=== PATIENT | female | born 1950 | race Caucasian/White ===

== ENCOUNTER → 2016-05-13 12:46 | Outpatient (CLI) | payer MEDICARE | END | disposition home or self-care (01) | LOC: D.CT 12:46 | DX: M54.5 Low back pain (principal); M79.605 Pain in left leg; M79.604 Pain in right leg ==

== ENCOUNTER 2016-12-02 06:45 | Outpatient (CLI) | payer MEDICARE ==
[~2016-12-02] VITALS: Ht 162.6 cm; Wt 87.5 kg
[2016-12-02 07:41] LABS: BASOPHILS 0.3 % (0-2); EOSINOPHILS 1.7 % (0-7); HEMATOCRIT 34.8 % (36.0-48.0); HEMOGLOBIN 11.4 g/dL (12-16); IMMATURE GRANULOCYTES 0.2 % (0-5); LYMPHOCYTES 23.8 % (15-50); MCH 33.1 pg (26.0-34.0); MCHC 32.8 g/dL (31.0-37.0); MCV 101.2 fL (80.0-100.0); MEAN PLATELET VOLUME 10.3 fL (7.4-10.4); MONOCYTES 9.7 % (2-11); NEUTROPHILS 64.3 % (40-80); PLATELET COUNT 177 10x3/uL (130-400); RBC 3.44 10x6/uL (4.00-5.40); RDW 12.8 % (11.5-14.5); WBC 8.9 10x3/uL (4.8-10.8)
[2016-12-02 07:56] LABS: ANION GAP 11.7 mmol/L (8-16); CALCIUM 7.8 mg/dL (8.5-10.1); CARBON DIOXIDE 30.7 mmol/L (21.0-32.0); CREATININE - SERUM 4.4 mg/dL (0.6-1.3); POTASSIUM - SERUM 4.4 mmol/L (3.5-5.1)
[2016-12-02 07:57] LABS: APTT 33.8 SECONDS (22.8-39.4); INR 1.01 (0.85-1.17); PROTIME 13.1 SECONDS (11.6-15.0)
[2016-12-02] MEDS ORDERED: PLAVIX75 MG PO (10:01)
[2016-12-02] MEDS ORDERED: ISOSORBIDE MONO60 M1 PO (10:02)
[2016-12-02] MEDS ORDERED: COREG25 MG PO (10:02)
[2016-12-02] MEDS ORDERED: NORVASC5 MG PO (10:03)
[2016-12-02] MEDS ORDERED: AMITRIPTYLINE150 MG PO (10:05)
[2016-12-02] MEDS ORDERED: LASIX80 MG PO (10:05)
[2016-12-02] MEDS ORDERED: HumaLOG (10:07)
[2016-12-02] MEDS ORDERED: RENVELA800 MG PO (10:09)
[2016-12-02 10:19] VITALS: BP 165/67; Ht 162.6 cm; Wt 87.5 kg
--- NOTE | 2016-12-02 11:43 | NUR ---
1130-PATIENT STATES FEELS LIKE BLOOD SUGAR IS GETTING LOW. FSBS CHECKED, 107. SURGERY NOTIFIED TO UPDATE PATIENT ON WHEN SHE WILL GO TO SURGERY.
--- NOTE | 2016-12-02 12:34 | NUR ---
PATIENT CALLED TO GIVE UPDATE OF SURGICAL DELAY.
--- NOTE | 2016-12-02 13:13 | NUR ---
PATIENT UPDATED ON SURGERY DELAY. SPOKE WITH .
--- NOTE | 2016-12-02 16:21 | NUR ---
1420-patient informed will be 1700 before surgery. 1430-patient elects to go home as as to be at work at 1800. 1440-iv d/c 1450-d/c home.
== END 2016-12-02 14:50 | disposition home or self-care (01) ==
LOC: D.OPS 06:45 → EDSTATUS 08:30 → D.OPS 08:30
PROVIDERS: Surgery
DX: E11.22 Type 2 diabetes mellitus with diabetic chronic kidney disease (principal); I13.2 Hypertensive heart and chronic kidney disease with heart failure and with stage 5 chronic kidney disease, or end stage renal disease; I50.9 Heart failure, unspecified; N18.6 End stage renal disease; Z99.2 Dependence on renal dialysis; Z01.810 Encounter for preprocedural cardiovascular examination; Z01.811 Encounter for preprocedural respiratory examination; Z01.812 Encounter for preprocedural laboratory examination; Z53.9 Procedure and treatment not carried out, unspecified reason

== ENCOUNTER 2016-12-30 05:33 | Day surgery (SDC) | payer MEDICARE ==
[2016-12-29 16:30] LABS: BASOPHILS 0.4 % (0-2); EOSINOPHILS 1.5 % (0-7); HEMATOCRIT 38.6 % (36.0-48.0); HEMOGLOBIN 12.5 g/dL (12-16); IMMATURE GRANULOCYTES 0.2 % (0-5); LYMPHOCYTES 27.7 % (15-50); MCH 33.3 pg (26.0-34.0); MCHC 32.4 g/dL (31.0-37.0); MCV 102.9 fL (80.0-100.0); MEAN PLATELET VOLUME 9.9 fL (7.4-10.4); MONOCYTES 8.4 % (2-11); NEUTROPHILS 61.8 % (40-80); PLATELET COUNT 212 10x3/uL (130-400); RBC 3.75 10x6/uL (4.00-5.40); RDW 13.2 % (11.5-14.5); WBC 8.6 10x3/uL (4.8-10.8)
[2016-12-29 16:39] LABS: ANION GAP 15.5 mmol/L (8-16); CALCIUM 8.8 mg/dL (8.5-10.1); CREATININE - SERUM 3.9 mg/dL (0.6-1.3); POTASSIUM - SERUM 5.5 mmol/L (3.5-5.1)
[~2016-12-30 05:33] MED LIST: AMITRIPTYLINE150 MG PO; COREG25 MG PO; HumaLOG; ISOSORBIDE MONO60 M1 PO; LASIX80 MG PO; NORVASC5 MG PO; PLAVIX75 MG PO; RENVELA800 MG PO
[2016-12-30 06:58] VITALS: BP 129/55; BMI 32.8
[2016-12-30 07:01] LABS: APTT 30.8 SECONDS (22.8-39.4); INR 0.98 (0.85-1.17); PROTIME 12.8 SECONDS (11.6-15.0)
--- NOTE | 2017-01-03 15:51 | OP ---
PATIENT NAME: IRAM AREVALO MEDICAL RECORD: [id number] :48 LOCATION:AMBER ADMISSION DATE: SURGEON: ESAU JIMENEZ MD DATE OF OPERATION: 12/30/2016 REFERRED BY: Khurram Senior MD PREOPERATIVE DIAGNOSES: End-stage renal disease and dependence on hemodialysis, ischemic steal syndrome associated with the right arm brachiocephalic AV fistula. POSTOPERATIVE DIAGNOSES: End-stage renal disease and dependence on hemodialysis, ischemic steal syndrome associated with the right arm brachiocephalic AV fistula. OPERATION PERFORMED: Right brachiocephalic AV fistulogram and selective right brachial arteriogram and opened Musa banding of AV fistula. SURGEON: Esau Jimenez MD ANESTHESIA: General with LMA per DANCE THERAPIST. PREOPERATIVE NOTE: Ms. Arevalo is a 66-year-old white female on dialysis with the right arm brachiocephalic fistula. She has ischemic pain symptoms in her right hand. She has preserved, though somewhat dampened, Doppler flow in the radial artery. I do not detect a Doppler flow in the ulnar artery. The hand is pink and warm and there were no ulcerations or areas of gangrene or tissue loss. Under anesthesia, the patient was placed in supine position and the right arm prepped and draped in a sterile manner. I made an incision adjacent to the fistula just proximal to the anastomosis, which had been to the distal brachial artery and the cephalic vein or JA segment exposed. I accessed the fistula proximally with micropuncture technique directed distally and inserted a 6-Pashto introducer. I then inserted a guidewire, which I advanced across the arterial anastomosis and proximally up in the brachial artery. Contrast was injected into the fistula through the introducer sheath and there were no areas of stenosis or problems with runoff observed. With occlusion of the fistula and contrast injection into the cephalic vein, it was apparent that there was a wide open anastomosis and flow into the forearm was noted in the distal brachial artery and radial artery. I then advanced a glide catheter over the wire up into the proximal brachial artery and performed a selective brachial artery arteriogram to evaluate flow to the hand. This demonstrated very poor flow distal to the arterial anastomosis at the fistula with the fistula patent and very significant improvement with occlusion of the fistula. I then inserted a 5-mm diameter angioplasty balloon into the fistula and JA segment, it was inflated and 2-0 Prolene tie was placed around it and tied snugly with the balloon inflated to near its burst pressures. The result of this when the balloon was deflated was really no significant improvement. I subsequently removed that ligature and placed another one, but this time over a 4 mm diameter balloon in the JA segment and this was much more successful. The brachial artery arteriogram was repeated. This was a selective study and this did reveal improved flow into the brachial artery distal to the arterial anastomosis. The hardware was removed and hemostasis at the puncture site obtained with [id number] 4-0 Prolene sutures and some direct digital pressure. The wound was closed after infiltrating it with 0.25% Marcaine without epinephrine. I OPERATIVE REPORT [id number] IRAM AREVALO approximated the subcutaneous tissues with interrupted inverted 3-0 Vicryl and ran the skin with running intracuticular 4-0 Monocryl. The wound was closed and sealed further with Dermabond and dressed with Maxorb Ag, Tegaderm, and Cavilon skin prep. The puncture site was dressed similarly without the use of Dermabond. The patient awakened from her anesthetic was taken to the recovery room in stable condition with a patent fistula and pink hand. She will be allowed to go home today with a prescription for tramadol 50 mg, she can have 10 tablets 1 p.o. as often as 4 hours p.r.n. for pain. She is to continue all of her home medications and diet and her usual dialysis schedule and return to see me in my office next week. There was no blood loss during the procedure and all sponges, instruments, and needles were accounted for. No drain was used and no surgical specimen was submitted for histopathology. TRANSINT:[id number] Voice Confirmation ID: [id number] DOCUMENT ID: [id number] EASU JIMENEZ MD at 1551 CC: KHURRAM SENIOR MD [id number] DICTATION DATE: 12/30/16 1012 DISPATCHER REFINERY: 12/30/16 1049 [facility] 12/30/16 [facility] [address] [place] [address]
[2017-02-24] MEDS ORDERED: SENSIPAR30 MG PO (15:14)
== END 2016-12-30 12:00 | disposition home or self-care (01) ==
LOC: D.OPS 05:33
PROVIDERS: Anesthesiology; Surgery
DX: T82.590A Other mechanical complication of surgically created arteriovenous fistula, initial encounter (principal); N18.6 End stage renal disease; Z99.2 Dependence on renal dialysis; Z01.812 Encounter for preprocedural laboratory examination

== ENCOUNTER 2017-02-28 05:40 | Day surgery (SDC) | payer MEDICARE ==
[2017-02-24 15:51] LABS: BASOPHILS 0.3 % (0-2); EOSINOPHILS 1.3 % (0-7); HEMATOCRIT 34.7 % (36.0-48.0); HEMOGLOBIN 11.5 g/dL (12-16); IMMATURE GRANULOCYTES 0.2 % (0-5); LYMPHOCYTES 29.2 % (15-50); MCH 33.3 pg (26.0-34.0); MCHC 33.1 g/dL (31.0-37.0); MCV 100.6 fL (80.0-100.0); MEAN PLATELET VOLUME 10.3 fL (7.4-10.4); MONOCYTES 6.2 % (2-11); NEUTROPHILS 62.8 % (40-80); PLATELET COUNT 181 10x3/uL (130-400); RBC 3.45 10x6/uL (4.00-5.40); RDW 12.8 % (11.5-14.5); WBC 10.3 10x3/uL (4.8-10.8)
[2017-02-24 15:58] LABS: APTT 28.9 SECONDS (22.8-39.4); INR 1.06 (0.85-1.17); PROTIME 13.4 SECONDS (11.6-15.0)
[2017-02-24 16:19] LABS: ANION GAP 10.8 mmol/L (8-16); CALCIUM 8.6 mg/dL (8.5-10.1); CARBON DIOXIDE 32.9 mmol/L (21.0-32.0); POTASSIUM - SERUM 5.7 mmol/L (3.5-5.1)
[~2017-02-28] VITALS: Ht 162.6 cm; Wt 86.6 kg
[~2017-02-28 05:40] MED LIST changes: +SENSIPAR30 MG PO
[2017-02-28 07:10] VITALS: BP 121/90; Ht 162.6 cm; Wt 86.6 kg
[2017-02-28] MEDS ORDERED: HYDROCODON-ACE1 EAC7 PO (10:58)
--- NOTE | 2017-02-28 11:33 | NUR ---
112 DR. TONY SOL
--- NOTE | 2017-02-28 11:52 | OP ---
PATIENT NAME: IRAM BEDOYA MEDICAL RECORD: [id number] :46 LOCATION:[facility] ADMISSION DATE: SURGEON: ESAU JIMENEZ MD DATE OF OPERATION: 02/28/2017 PREOPERATIVE DIAGNOSIS: Steal syndrome resulting from high flow in left brachiocephalic arteriovenous fistula, previously banded without adequate resolution of symptoms. POSTOPERATIVE DIAGNOSIS: Steal syndrome resulting from high flow in left brachiocephalic arteriovenous fistula, previously banded without adequate resolution of symptoms. ADDITIONAL DIAGNOSIS: End-stage renal disease and dependence on hemodialysis. SURGEON: Esau Jimenez MD REFERRING PHYSICIAN: Khurram Senior MD ANESTHESIA: General with LMA per DIRECTOR OF ENTERTAINMENT. OPERATION PERFORMED: Revision of AV fistula, left arm, by interposition of a [place] Propaten 6-mm diameter PTFE graft between the proximal brachial artery and the fistula just above the antecubital space and ligation of the JA segment of the fistula just proximal to the original arterial anastomosis. PREOPERATIVE NOTE: I banded Ms. Avina fistula recently, but she had inadequate relief of her hand pain and she has returned to the operating room now for proximalization. DESCRIPTION OF PROCEDURE: Under general anesthesia in supine position, the patient was prepped and draped in sterile manner. I examined the arm with a duplex ultrasound and noted the position and size of the proximal brachial artery and made a longitudinal incision just distal to the axilla. The artery was exposed and controlled with Silastic loops. I then made an incision on the medial aspect of the fistula just above the antecubital space, and with sharp dissection exposed the JA segment and the Prolene tie or ligature, which I placed on it at the recent banding procedure. I then dissected free and adequate length of the vein for our purposes and encircled it with Silastic loops. I chose a 6-mm [place] Propaten standard wall thickness PTFE AV graft. I bevelled one end. I then occluded the brachial artery with Silastic loops, made a arteriotomy. Flushed the artery proximally and distally with heparinized saline and performed an end-to-side graft to artery anastomosis with running 6-0 Prolene. When completed, I allowed some backbleeding from the graft and then flushed it with heparinized saline and clamped. The suture line was hemostatic. I placed the graft in a subcutaneous tunnel between the axilla or upper arm wound and the distal arm incision. There it was shortened and beveled. The vein was ligated just above the old arterial anastomosis. This was done with a 2-0 Vicryl and the vein was occluded then with a vascular clamp. A venotomy was made and the vein then flushed with heparinized saline and then the graft shortened and beveled, was anastomosed end of graft to side of the vein with continuous running 6-0 Prolene. When the suture line was complete and the occluding loops and clamps were released, the suture line was hemostatic and excellent flow developed immediately in the fistula. OPERATIVE REPORT [id number] IRAM BEDOYA MANSI Both suture lines were hemostatic. The wounds were irrigated with Ancef and gentamicin solution. They were then infiltrated and irrigated with one-fourth percent Marcaine without epinephrine. The wounds were closed with interrupted inverted 3-0 Vicryl and then running intracuticular 4-0 Monocryl and Dermabond glue. The incisions were dressed with Maxorb Ag, Tegaderm and Cavilon skin prep. The patient was awakened. Doppler examination confirmed excellent continuous pulsatile flow in the fistula. There was a palpable brachial pulse at the antecubital level and there was excellent radial arterial Doppler flow signals at the wrist with good amplitude and phasicity. The patient was then taken to the recovery room in stable condition. Blood loss during the procedure was trivial and unreplaced. All sponges, instruments and needles were accounted for. No drain was used and no surgical specimen was submitted for histopathology. PLAN: The patient will be allowed to go home today. She lives here in [place]. I would like to see her back in my office next week. I can remove her dressing to check her wounds at that time. She is to continue her routine home medications and renal diet. She will continue her regular dialysis schedule and she may shower as the waterproof dressing are indeed waterproof. TRANSINT:[id number] Voice Confirmation ID: [id number] DOCUMENT ID: [id number] ESAU JIMENEZ MD at 1152 CC: KHURRAM SENIOR MD [id number] DICTATION DATE: 02/28/17 1114 ELECTRONIC SECURITY SPECIALIST: 02/28/17 1146 [facility] [address] [place] [address]
== END 2017-02-28 12:30 | disposition home or self-care (01) ==
LOC: D.OPS 05:40 → D.PAN 08:00 → D.OPS 08:00
PROVIDERS: Surgery
DX: T82.898A Other specified complication of vascular prosthetic devices, implants and grafts, initial encounter (principal); I13.2 Hypertensive heart and chronic kidney disease with heart failure and with stage 5 chronic kidney disease, or end stage renal disease; E11.22 Type 2 diabetes mellitus with diabetic chronic kidney disease; N18.6 End stage renal disease; I50.9 Heart failure, unspecified; Z99.2 Dependence on renal dialysis; J44.9 Chronic obstructive pulmonary disease, unspecified; G47.30 Sleep apnea, unspecified; Z95.1 Presence of aortocoronary bypass graft; Z95.5 Presence of coronary angioplasty implant and graft; E66.9 Obesity, unspecified; Z01.812 Encounter for preprocedural laboratory examination

== ENCOUNTER → 2018-02-12 07:46 | Outpatient (CLI) | payer MEDICARE ==
[2017-02-28 07:10] VITALS: BMI 32.8
[~2018-02-12 07:46] MED LIST changes: +HYDROCODON-ACE1 EAC7 PO
[2018-02-12 08:08] LABS: BASOPHILS 0.5 % (0-2); HEMATOCRIT 38.4 % (36.0-48.0); HEMOGLOBIN 12.8 g/dL (12-16); IMMATURE GRANULOCYTES 0.2 % (0-5); LYMPHOCYTES 26.6 % (15-50); MCH 34.2 pg (26.0-34.0); MCHC 33.3 g/dL (31.0-37.0); MCV 102.7 fL (80.0-100.0); MEAN PLATELET VOLUME 10.1 fL (7.4-10.4); MONOCYTES 8.6 % (2-11); NEUTROPHILS 62.1 % (40-80); PLATELET COUNT 165 10x3/uL (130-400); RBC 3.74 10x6/uL (4.00-5.40); RDW 13.2 % (11.5-14.5); WBC 9.2 10x3/uL (4.8-10.8)
[2018-02-12 08:19] LABS: APTT 33.6 SECONDS (22.8-39.4); CALCIUM 8.4 mg/dL (8.5-10.1); CARBON DIOXIDE 31.9 mmol/L (21.0-32.0); CREATININE - SERUM 5.2 mg/dL (0.6-1.3); INR 1.06 (0.85-1.17); POTASSIUM - SERUM 4.9 mmol/L (3.5-5.1); PROTIME 13.3 SECONDS (11.6-15.0)
== END | disposition home or self-care (01) ==
LOC: D.SP 07:46 → D.RAD 10:00
PROVIDERS: Specialist
DX: R20.0 Anesthesia of skin (principal); I70.203 Unspecified atherosclerosis of native arteries of extremities, bilateral legs; M48.061 Spinal stenosis, lumbar region without neurogenic claudication; Z01.812 Encounter for preprocedural laboratory examination

== ENCOUNTER 2018-04-23 18:26 | Observation (INO) | payer MEDICARE ==
[~2018-04-23] VITALS: Ht 162.6 cm; Wt 90.3 kg
--- NOTE | 2018-04-23 18:37 | NUR ---
PT ARRIVED TO UNIT VIA WC. ALERT AND ORIENTED. FAMILY AT BEDSIDE.
[2018-04-23 19:18] LABS: BASOPHILS 0.2 % (0-2); EOSINOPHILS 0.9 % (0-7); HEMATOCRIT 38.4 % (36.0-48.0); HEMOGLOBIN 12.6 g/dL (12-16); IMMATURE GRANULOCYTES 0.3 % (0-5); LYMPHOCYTES 16.9 % (15-50); MCH 33.7 pg (26.0-34.0); MCHC 32.8 g/dL (31.0-37.0); MCV 102.7 fL (80.0-100.0); MEAN PLATELET VOLUME 10.1 fL (7.4-10.4); MONOCYTES 9.4 % (2-11); NEUTROPHILS 72.3 % (40-80); RBC 3.74 10x6/uL (4.00-5.40); RDW 15.3 % (11.5-14.5); WBC 10.2 10x3/uL (4.8-10.8)
[2018-04-23 19:21] LABS: PLATELET COUNT 211 10x3/uL (130-400)
[2018-04-23] MEDS ORDERED: COREG25 MG PO (19:24)
[2018-04-23 19:28] LABS: INR 1.16 (0.85-1.17); PROTIME 14.2 SECONDS (11.6-15.0)
--- NOTE | 2018-04-23 19:30 | NUR ---
DIRECT ADMIT. REVIEWED PATIENT MED REC WITH PATIENT. CALLED DR. BOURGEOIS RESTARTED HS MEDS.
[2018-04-23 19:41] LABS: ANION GAP 15.6 mmol/L (8-16); CALCIUM 7.7 mg/dL (8.5-10.1); CARBON DIOXIDE 26.9 mmol/L (21.0-32.0); CREATININE - SERUM 7.4 mg/dL (0.6-1.3); PHOSPHOROUS 4.9 mg/dL (2.5-4.9); POTASSIUM - SERUM 5.5 mmol/L (3.5-5.1)
--- NOTE | 2018-04-23 20:53 | NUR ---
NICK MARC APN PAGED JOCELINE DAVALOS BACK
[2018-04-23 21:11] VITALS: BP 158/97
[2018-04-23 23:23] VITALS: BP 159/97; BMI 34.2
[2018-04-24 06:24] VITALS: BP 147/45
[2018-04-24 08:14] VITALS: BP 145/53
--- NOTE | 2018-04-24 09:10 | NUR ---
RESTS IN BED WITH EYES CLOSED. AT BS. CALL LIGHT IN REACH.
[2018-04-24 11:57] VITALS: BP 138/57
--- NOTE | 2018-04-24 12:50 | NUR ---
SPOKE WITH TY IN DIALYSIS AND STATED TO HER PT IS TO HAVE SURGERY TODAY AND DIALYSIS AFTER. SHE STATES SHE DIDN'T SEE THE ORDER BUT SHE'LL LOOK.
--- NOTE | 2018-04-24 13:42 | NUR ---
HIBACLENS BATH DONE AND PT IN GOWN.
[2018-04-24 14:18] VITALS: Ht 162.6 cm; Wt 90.3 kg
[2018-04-24 15:52] VITALS: BP 113/63
--- NOTE | 2018-04-24 16:26 | NUR ---
PT HIGHLY UPSET SURGERY WAS CANCELED. PT STATES "AM I JUST SUPOSSED TO LAY HERE AND ?! I HAVEN'T HAD DIALYSIS IN 5 DAYS!!!" I STATED TO PT SHE IS GOING LEONOR THING TOMORROW AM.
[2018-04-24 20:00] VITALS: BP 144/79
--- NOTE | 2018-04-24 20:05 | NUR ---
HS MEDS GIVEN WITH FRESH ICE WATER. BS 202, COVERED PER S/S. NORCO 1 TAB GIVEN FOR C/O GNERALIZED PAIN, RATES PAIN AT AN 8 ON PAIN SCALE.
--- NOTE | 2018-04-25 02:56 | NUR ---
RESTING WITH EYES CLOSED, RESPERATIONS EVEN, NO S.S DISTRESS NOTED.
[2018-04-25 04:00] VITALS: BP 171/75
--- NOTE | 2018-04-25 05:20 | NUR ---
CONSENTS RE-SIGNED FOR FISTULOGRAM WITH ANGIOJET TO BE DONE TODAY.
--- NOTE | 2018-04-25 07:10 | NUR ---
REPORT RECEIVED. PT HAS ALREADY GONE FOR SURGERY. AT BEDSIDE.
[2018-04-25 08:15] VITALS: BP 131/72
--- NOTE | 2018-04-25 09:31 | NUR ---
IN SURGERY AT THIS TIME. WILL CONT. PLAN OF CARE.
--- NOTE | 2018-04-25 10:29 | NUR ---
MYKE ULLOA RENAL CORRINE OF DR. JIMENEZ'S NURSE MESSAGE THAT STATED PT HAS A NEW RIGHT CHEST HEMOSPLIT AND HE COULD NO SALVAGE AVG AND THAT PT WILL NEED A NEW ACCESS AND TO HOLD PLAVIX THAT SHE WAS ON TO KEEP AVG OPEN. LAILA CASTLE VERBALIZED UNDERSTANDING. I ALSO STATED TO LAILA CASTLE THAT PT HAS NO RETURNED YET. SHE VERBALIZED UNDERSTANDING AGAIN.
--- NOTE | 2018-04-25 10:47 | NUR ---
JAIDA FROM RECOVERY STATES DR. JIMENEZ WAS UNABLE TO DECLOT FISTULA BUT HE DID PLACE RT CHEST HEMOSPLIT 148/65, HR 50, ANESTHESIA GAVE 0.4 ROBINUL AND PT HAS 200ML OF NS.
--- NOTE | 2018-04-25 10:51 | NUR ---
NEED ORDERS FOR HD TODAY. LAILA CASTLE PAGED.
--- NOTE | 2018-04-25 10:52 | NUR ---
LAILA CASTLE STATES SOFIYA KNOWS ABOUT PT NEEDING HD TODAY. CALLED AND SPOKE WITH GLADYS AND HE STATES PT WILL GO SOMETIME TODAY.
--- NOTE | 2018-04-25 10:55 | NUR ---
DUE TO HR 50 AND DROPPING AND BP 148/65 IN POST OP. LAILA CASTLE STATES TO HOLD COREG.
[2018-04-25 11:27] VITALS: BP 114/31
[2018-04-25 11:40] VITALS: BP 126/62
[2018-04-25 11:55] VITALS: BP 103/59
--- NOTE | 2018-04-25 12:04 | NUR ---
AT 1035 CONSULTED ANESTHESIA REGARDING MARKED BRADYCARDIA. DR ERNANDEZ AT BEDSIDE. ORDERS FOR GLYCOPYROLATE 0.4MG GIVEN. THIS WAS GIVEN BY STEFANIE ANDERSON CRNA. FOR A HEART RATE OF 44BPM. WILL CONTINUE TO MONITOR. BLOOD PRESSURE 172/80. PATIENT ASYMPTOMATIC.
[2018-04-25 12:10] VITALS: BP 101/81
--- NOTE | 2018-04-25 12:17 | NUR ---
JAIDA FROM OR CALLED AND STATED THAT DR. JIMENEZ IS DOING SURGERIES RIGHT NOW THAT IS NOT HERE BUT HE SHOUDL COME BACK TO SEE PT. RELAYED THIS MESSAGE TO PT.
--- NOTE | 2018-04-25 12:31 | NUR ---
SPOKE WITH DR. JIMENEZ'S OFFICE AND THEY STATED THAT DR. JIMENEZ STATES HE HOPES HE WILL BE BACK BY TODAY TO SEE PT AND ANSER HER QUESTIONS BUT HE IS DOING SURGERIES NOT HERE AT [facility].
--- NOTE | 2018-04-25 12:47 | NUR ---
SPOKE WITH LAILA RENAL OVERNIGHT CASHIER AND SHE STATES PT STATED TO HER SHE HAD A STENT RECENTLY SO TO CONTINUE PLAVIX.
--- NOTE | 2018-04-25 14:09 | NUR ---
PT STATED TO LAILA CARR SHE WANTS TO GO HOME CAUSE SHE HAS BEEN HERE SINCE MONDAY. PT HAS ONLY BEEN HERE SINCE MONDAY NIGHT. LAILA CASTLE STATES IF PT IS CONFUSED SHE DOES NEED TO STAY ANOTHER NIGHT AND THAT SHE IS GOING TO SPEAK WITH PT'S .
--- NOTE | 2018-04-25 14:10 | NUR ---
PT TAKEN DOWN TO DIALYSIS VIA BED.
--- NOTE | 2018-04-25 15:17 | NUR ---
SPOKE WITH MORENA FROM DR. JIMENEZ'S OFFICE AND STATED TO HER PT IS IN DIALYSIS AND WILL BE TILL 1800 OR A LITTLE AFTER BUT IS IN PT'S ROOM. SHE STATES SHE WILL TELL DR. JIMENEZ.
--- NOTE | 2018-04-25 17:28 | NUR ---
DIALYSIS STATES BP 171/90 HR 74 TEMP. 97.7 AND 2L OFF.
--- NOTE | 2018-04-25 18:05 | NUR ---
PT WANTING SOMETHING FOR PAIN BEFORE SHE IS DC AND STATES "I WON'T BE ABLE TO GET ANY REST TONIGHT WITHOUT IT." I ASKED IF SHE WOULD LIKE FOR ME TO CALL THE DOCTOR. SHE STATES "YES CALL THE DOCTOR!!!" PAGED LAILA CASTLE.
--- NOTE | 2018-04-25 18:10 | NUR ---
LAILA RENAL DISPENSING OPTICIAN APPRENTICE STATES TO JUST GIVE PT A NORCO NOW AND SHE CAN GET A SCRIPT TOMORROW IN DIALYSIS.
--- NOTE | 2018-04-25 18:18 | NUR ---
STATED TO PT WHAT LAILA CASTLE STATED TO ME. PT STATES SHE WILL TAKE A NORCO NOW AND WAIT AN HOUR. LEFT WRIST IV DC'D AND CATH INTACT.
--- NOTE | 2018-04-26 09:10 | MORECARE ---
CASE MANAGEMENT DISCHARGE SUMMARY PATIENT: IRAM BEDOYA SHARP UNIT: [id number] ADM DATE: 04/23/18 AGE: 67 : 48 SEX: F ROOM/BED: D.2133 AUTHOR: AUGUSTO SAGE PHYSICIAN: REFERRING PHYSICIAN: MAYURI BOURGEOIS MD DATE OF SERVICE: 04/26/18 Discharge Plan Patient Name: IRAM BEDOYA [facility] [facility] 1950 Planned Disposition: Home Anticipated Discharge Date: 04/25/18 Discharge Date: 04/25/2018 Expected LOS: 2 Initial Reviewer: [email or web address] Initial Review Date: 04/26/2018 Generated: 04/26/18 10:09 am Coverage Notice Reviewer: [email or web address] Nikkie Chauhan Notice Issued Date-Time: 04/24/2018 15:56 Notice Type: Medicare Outpatient Observation Notice Notice Delivered To: Patient Relationship to Patient: Self Publicist Name: Delivery Method: HAND - Hand Delivered Yaneth Days: Prior Verbal Notification: Recipient Understood Notice: Yes Recipient Signature: Med Rec Note Co-signed by Attending: Coverage Notice Comment: PATIENT REFUSED TO SIGN MCMAHAN. STATED SHE IS NOT GOING TO PAY FOR EXTRA DAY JUST BECAUSE THE DOCTOR CANCELLED. SHE STATED THE LAST TIME HE CANCELLED 3 TIMES. Patient Name: IRAM BEDOYA Page [phone] at 0910 All edits/amendments must be made on the electronic document DICTATION DATE: 04/26/18908 NANOFABRICATION SPECIALIST: VINICIUS 04/26/18908 RPT#: [id number] DC DATE:04/25/18 STATUS: DIS IN [facility] [address] [place] [address] END OF REPORT
[2018-05-03] MEDS ORDERED: OMEPRAZOLE40 MG PO (11:31)
== END 2018-04-25 19:30 | disposition home or self-care (01) ==
LOC: D.M2 18:26 → OBSVTIME 18:26 → D.M2 04-25 19:30
PROVIDERS: Internal Medicine Nephrology; Surgery; ADMIT Internal Medicine Nephrology
DX: T82.868A Thrombosis due to vascular prosthetic devices, implants and grafts, initial encounter (principal); Y83.8 Other surgical procedures as the cause of abnormal reaction of the patient, or of later complication, without mention of misadventure at the time of the procedure; S45.811A Laceration of other specified blood vessels at shoulder and upper arm level, right arm, initial encounter; Y84.9 Medical procedure, unspecified as the cause of abnormal reaction of the patient, or of later complication, without mention of misadventure at the time of the procedure; N18.6 End stage renal disease; Z99.2 Dependence on renal dialysis

== ENCOUNTER 2018-05-04 11:13 | Day surgery (SDC) | payer MEDICARE ==
[2018-05-03 11:59] LABS: BASOPHILS 0.3 % (0-2); EOSINOPHILS 1.7 % (0-7); HEMATOCRIT 34.5 % (36.0-48.0); HEMOGLOBIN 11.3 g/dL (12-16); IMMATURE GRANULOCYTES 0.3 % (0-5); LYMPHOCYTES 23.9 % (15-50); MCH 33.5 pg (26.0-34.0); MCHC 32.8 g/dL (31.0-37.0); MCV 102.4 fL (80.0-100.0); MONOCYTES 6.9 % (2-11); NEUTROPHILS 66.9 % (40-80); PLATELET COUNT 242 10x3/uL (130-400); RBC 3.37 10x6/uL (4.00-5.40); RDW 14.4 % (11.5-14.5); WBC 8.9 10x3/uL (4.8-10.8)
[2018-05-03 12:04] LABS: INR 1.08 (0.85-1.17); PROTIME 13.5 SECONDS (11.6-15.0)
[2018-05-03 12:05] LABS: ANION GAP 13.7 mmol/L (8-16); CALCIUM 7.7 mg/dL (8.5-10.1); CARBON DIOXIDE 28.2 mmol/L (21.0-32.0); POTASSIUM - SERUM 3.9 mmol/L (3.5-5.1)
[~2018-05-04] VITALS: Ht 162.6 cm; Wt 86.6 kg
[~2018-05-04 11:13] MED LIST changes: +OMEPRAZOLE40 MG PO
[2018-05-04 12:06] VITALS: Ht 162.6 cm; Wt 86.6 kg
[2018-05-04] MEDS ORDERED: ULTRAM50 MG PO ×2 (16:12→16:15)
--- NOTE | 2018-05-04 18:25 | NUR ---
DISCHARGE INSTRUCTIONS REVIEWED WITH PATIENT AND SPOUSE. RIGHT HEMOSPLIT FLUSHED WITH 1.9 ML HEPARIN AND CAPPED HEMOSPLIT WAS USED BY SURGERY FOR VENOUS ACCESS. PATIENT DRESSING IN PERSONAL CLOTHING, PATIENT INSTRUCTED TO KEEP SLING ON AND PUT SHIRT AROUND ARM INSTEAD OF PUTTING ARM IN SLEEVE OF SHIRT, STATES UNDERSTANDING
--- NOTE | 2018-05-08 14:58 | OP ---
PATIENT NAME: IRAM AREVALO MEDICAL RECORD: [id number] :46 LOCATION:AMBER ADMISSION DATE: SURGEON: ESAU JIMENEZ MD DATE OF OPERATION: 05/04/2018 REFERRED BY: Khurram Senior MD PREOPERATIVE DIAGNOSES: End-stage renal disease, dependence on hemodialysis, and thrombosed right upper extremity arteriovenous graft, and history of steal syndrome in the right upper extremity. OPERATION PERFORMED TODAY: Creation of a left brachiocephalic AV fistula. SURGEON: Esau Jimenez MD ANESTHESIA: Regional nerve block plus monitored anesthesia, IV sedation per SHOP WORKER. PREOPERATIVE NOTE: Ms. Arevalo is a 67-year-old white female patient with end-stage renal disease, on chronic hemodialysis. She dialyzed for some time with a right brachiocephalic AV fistula. She developed a steal syndrome and had a proximal arterialization with a PTFE graft, which solved that problem, but she then had episodes of thrombosis and with the last episode of thrombosis due to cephalic arch stenosis the access could not be salvaged. She is now dialyzing at [facility] with a right internal jugular tunneled dialysis catheter and is brought to the hospital and to the operating room for a new access in the left arm today. She had vein mapping recently by Dr. Senior and was found to have a very nice cephalic vein in the arm above the antecubital space and to be a good candidate for brachiocephalic fistula. Note, the patient had had a brachiocephalic fistula previously on the right and with that had developed a steal syndrome. DESCRIPTION OF PROCEDURE: Under anesthesia in supine position, the patient was prepped and draped in sterile manner. A [place] drain was used as a proximal venous tourniquet and nitroglycerin ointment was applied to the intact skin of the arm and forearm. I then examined the patient with Duplex ultrasound and noted the veins in the forearm to be quite small and really unusable. There was a very nice median cubital vein and upper arm cephalic vein and a good brachial artery. I did not have enough vein to reach the proximal radial artery for anastomosis, I did not think. I made a transverse antecubital incision and exposed the median cubital vein and the brachial artery. Indeed, there was really not enough length of vein to reach the proximal radial artery, but I was able to do an anastomosis to the distal brachial. The vein was freed from surrounding structures. It was ligated and divided and bevelled distally and flushed with heparinized saline. The artery was controlled with doubly looped Silastic tapes. It was opened for a distance of about 7 mm and flushed with heparinized saline proximally and distally. An end-to-side anastomosis was then carried out with running 7-0 Prolene and on completion of the anastomosis, a good thrill and pulse developed in the fistula. Continuous wave handheld Doppler examination demonstrated pulsatile continuous flow in the proximal brachial artery and of course in the fistula. There was more resistance in the distal brachial artery flow signal. Doppler flow was present in the radial and ulnar arteries at the wrist with and without compression of the new fistula. I could not detect the palmar arch with OPERATIVE REPORT [id number] AURELIANOIRAM SHARP the Doppler, either with or without new fistula occlusion. The hand; however, remained pink with normal capillary refill. The patient's wound was closed with interrupted inverted 3-0 Vicryl and then running intracuticular 4-0 Monocryl and Dermabond glue. It was dressed with Maxorb Ag, Tegaderm, and Cavilon skin prep. She was awakened from the sedation and taken to the recovery room in stable condition. Blood loss during the operation was trivial and unreplaced. Sponges, instruments, and needles were accounted for. No drain was used and no surgical specimen was submitted for histopathology. PLAN: The patient will be discharged to home from outpatient today. She will continue all of her same medications, her home diet, and activities and dialysis schedule. She may resume her Plavix as of tomorrow. She is to leave the original operative dressing intact if possible until she comes to see me for her followup office visit in about 10 days or 1 week from this coming Monday. I have left her a prescription for a few tramadol 50 mg tablets, she can take 1 or if needed 2 q.4 hours p.r.n. for pain. TRANSINT:[id number] Voice Confirmation ID: [id number] DOCUMENT ID: [id number] cc: [facility] [phone] ESAU JIMENEZ MD at 2548 CC: KHURRAM SENIOR and [facility] [id number] DICTATION DATE: 05/04/18 163 PSYCHIATRIC REGISTERED NURSE: 05/04/18 9209 [facility] 05/04/18 [facility] [address] [place] [address]
== END 2018-05-04 18:40 | disposition home or self-care (01) ==
LOC: D.OPS 11:13
PROVIDERS: Surgery
DX: T82.868A Thrombosis due to vascular prosthetic devices, implants and grafts, initial encounter (principal); N18.6 End stage renal disease; Z99.2 Dependence on renal dialysis; Z01.812 Encounter for preprocedural laboratory examination

== ENCOUNTER 2018-07-10 08:22 | Day surgery (SDC) | payer MEDICARE ==
[~2018-07-10] VITALS: Ht 157.5 cm; Wt 86.6 kg
--- NOTE | ~2018-07-10 | OP ---
PATIENT NAME: IRAM AREVALO MEDICAL RECORD: [id number] :48 LOCATION:AMBER ADMISSION DATE: SURGEON: ESAU JIMENEZ MD DATE OF OPERATION: 07/10/2018 REFERRING PHYSICIAN: Khurram Senior MD PREOPERATIVE DIAGNOSES: End-stage renal disease and dependence on hemodialysis with steal syndrome in left upper extremity secondary to brachiocephalic AV fistula. POSTOPERATIVE DIAGNOSES: End-stage renal disease and dependence on hemodialysis with steal syndrome in left upper extremity secondary to brachiocephalic AV fistula. OPERATION PERFORMED: Fistulogram, selective left brachial artery arteriogram, open Musa banding of AV fistula, and ultrasound-guided access. PREOPERATIVE NOTE: Ms. Arevalo is a 67-year-old white female patient with end-stage renal disease and a dysfunctional left brachiocephalic AV fistula. She has steal syndrome. She is brought to the OR to confirm the diagnosis by angiography and perform an open Musa banding. DESCRIPTION OF PROCEDURE: Under general anesthesia in supine position, the patient was prepped and draped in sterile manner. The fistula was accessed in retrograde direction with micropuncture technique and ultrasound guidance. A 6-Ecuadorean introducer was placed. Contrast was injected repeatedly and complete fistulogram from arterial anastomosis to right atrium completed without any significant stenoses or obstructions identified. A Glidewire and a Ellerbe catheter were then advanced across the arterial anastomosis and proximally up into the axillary artery and a selective arteriogram performed of the left upper extremity. This revealed no evidence of obstruction of the axillary or brachial artery through its bifurcation, although there was very slow and very poor flow into the forearm. This was improved with occlusion of the fistula in essence of positive steal study. I made an incision then along the fistula just above the arterial anastomosis and exposed it and isolated it. I inserted a 4-mm diameter angioplasty balloon into the JA segment and inflated the balloon and then tied a 2-0 Prolene ligature around it to produce a precise 4-mm diameter lumen. The balloon was deflated. Contrast injection again performed, which demonstrated an improvement in distal flow to the hand. The hardware was removed. Hemostasis was obtained with a bcassi-eu-qvrye 4-0 Prolene suture and a sterile dressing was applied. The patient was awakened and taken to the recovery room. TRANSINT:[id number] Voice Confirmation ID: [id number] DOCUMENT ID: [id number] ESAU JIMENEZ MD CC: KHURRAM SENIOR [id number] DICTATION DATE: 07/16/18 1634 REMOTE SENSING SURVEYOR: 07/16/181911 [facility] 07/10/18 [place] [id number] [place] [id number]
[~2018-07-10 08:22] MED LIST changes: +ULTRAM50 MG PO
[2018-07-10 09:06] LABS: ANION GAP 14.4 mmol/L (8-16); CREATININE - SERUM 5.2 mg/dL (0.6-1.3); POTASSIUM - SERUM 4.4 mmol/L (3.5-5.1)
[2018-07-10 09:13] LABS: INR 1.12 (0.85-1.17); PROTIME 13.9 SECONDS (11.6-15.0)
[2018-07-10 09:20] LABS: BASOPHILS 0.4 % (0-2); EOSINOPHILS 1.6 % (0-7); HEMOGLOBIN 12.3 g/dL (12-16); IMMATURE GRANULOCYTES 0.4 % (0-5); LYMPHOCYTES 24.2 % (15-50); MCH 33.9 pg (26.0-34.0); MCHC 33.2 g/dL (31.0-37.0); MCV 101.9 fL (80.0-100.0); MEAN PLATELET VOLUME 10.9 fL (7.4-10.4); MONOCYTES 7.7 % (2-11); NEUTROPHILS 65.7 % (40-80); RBC 3.63 10x6/uL (4.00-5.40); RDW 12.7 % (11.5-14.5); WBC 10.9 10x3/uL (4.8-10.8)
[2018-07-10 09:39] LABS: PLATELET COUNT 169 10x3/uL (130-400)
[2018-07-10] MEDS ORDERED: TOUJEO SOL300 UNIT/1 SC (10:44)
[2018-07-10] MEDS ORDERED: BAYER CHEWABLE81 MG PO (10:45)
[2018-07-10 10:56] VITALS: Ht 157.5 cm; Wt 86.6 kg
--- NOTE | 2018-07-10 11:07 | NUR ---
LABS REVIEWED. NO SIGNIFICANT LEVELS NOTED.
--- NOTE | 2018-07-10 13:31 | NUR ---
FSBS 135MG/DL
--- NOTE | 2018-07-10 14:31 | NUR ---
1420 BS DONE PER REQUEST 113. ATE FULL LIQ TRAY
== END 2018-07-10 15:00 | disposition home or self-care (01) ==
LOC: D.OPS 08:22
PROVIDERS: Surgery; ATTEND Internal Medicine Nephrology
DX: T82.590A Other mechanical complication of surgically created arteriovenous fistula, initial encounter (principal); T82.898A Other specified complication of vascular prosthetic devices, implants and grafts, initial encounter; N18.6 End stage renal disease; Z01.812 Encounter for preprocedural laboratory examination

== ENCOUNTER 2018-08-28 10:30 | Outpatient (CLI) | payer MEDICARE ==
[2018-07-10 10:56] VITALS: BMI 35.0
[~2018-08-28 10:30] MED LIST changes: +BAYER CHEWABLE81 MG PO; +TOUJEO SOL300 UNIT/1 SC
== END 2018-08-28 11:00 | disposition home or self-care (01) ==
LOC: D.MAMMO 10:30
PROVIDERS: ATTEND Internal Medicine Nephrology
DX: Z12.31 Encounter for screening mammogram for malignant neoplasm of breast (principal)

== ENCOUNTER 2018-09-28 05:49 | Day surgery (SDC) | payer MEDICARE ==
[2018-09-27 15:08] LABS: BASOPHILS 0.2 % (0-2); EOSINOPHILS 0.9 % (0-7); HEMATOCRIT 36.3 % (36.0-48.0); HEMOGLOBIN 12.5 g/dL (12-16); IMMATURE GRANULOCYTES 0.2 % (0-5); LYMPHOCYTES 26.7 % (15-50); MCH 34.3 pg (26.0-34.0); MCHC 34.4 g/dL (31.0-37.0); MCV 99.7 fL (80.0-100.0); MEAN PLATELET VOLUME 9.8 fL (7.4-10.4); MONOCYTES 10.7 % (2-11); NEUTROPHILS 61.3 % (40-80); PLATELET COUNT 191 10x3/uL (130-400); RBC 3.64 10x6/uL (4.00-5.40); WBC 10.4 10x3/uL (4.8-10.8)
[2018-09-27 15:26] LABS: ANION GAP 14.5 mmol/L (8-16); CALCIUM 8.5 mg/dL (8.5-10.1); CARBON DIOXIDE 30.3 mmol/L (21.0-32.0); CREATININE - SERUM 4.6 mg/dL (0.6-1.3); POTASSIUM - SERUM 4.8 mmol/L (3.5-5.1)
[~2018-09-28] VITALS: Ht 162.6 cm; Wt 86.6 kg
--- NOTE | ~2018-09-28 | OP ---
PATIENT NAME: IRAM AREVALO MEDICAL RECORD: [id number] :48 LOCATION:AMBER ADMISSION DATE: SURGEON: ESAU JIMENEZ MD DATE OF OPERATION: 09/28/2018 REFERRING PHYSICIAN: Khurram Hermosillo MD PREOPERATIVE DIAGNOSES: End-stage renal disease on hemodialysis and dependence on renal dialysis. POSTOPERATIVE DIAGNOSES: End-stage renal disease on hemodialysis and dependence on renal dialysis. OPERATION PERFORMED: Laparoscopy with enterolysis and omentopexy and implantation of a Merit coiled dialysis catheter laparoscopically on the left side with subcutaneous presternal extension. SURGEON: Esau Jimenez MD ANESTHESIA: General endotracheal per NEURO PSYCH SALES SPECIALIST. PREOPERATIVE NOTE: Ms. Arevalo is a 68-year-old white female patient with end-stage renal disease, presently on hemodialysis with a left brachiocephalic AV fistula. Though it is new, it has only been used a few times. She is to have a PD catheter implanted. We plan to implant a catheter with presternal extension. We have discussed preoperatively various exit sites and had chosen a chest exit. This will be on the left because the patient has a chronic indwelling HemoSplit presently on the right side. DESCRIPTION OF PROCEDURE: The patient was administered anesthesia and then in a supine position she was prepped and draped in a sterile manner. Laparoscopic access was gained through a small incision just beneath the costal margin on the left. A 5-mm XL Optiview type port was used with a 5-mm diameter scope within it. Pneumoperitoneum was established with carbon dioxide and three additional 5-mm ports were used during the procedure. I found the patient to have extensive adhesions of omentum to the anterior abdominal wall and particularly to the anterior pelvic wall. Enterolysis was performed bluntly and with use of the Harmonic scalpel. There was some bleeding, which I treated with a 20 mcg of DDAVP administered by anesthesia intravenously and I felt that it would be okay then to do an omentopexy and then implant the catheter. The omentopexy was done with a Marcello-Genna suture passer through 2 separate small incisions, one in the left upper quadrant and one in the right upper quadrant. These held the omentum up against the anterior abdominal wall in the upper portion of the abdomen quite nicely. This should prevent omental wrap occurring in the pelvis. I measured from the symphysis pubis and determined a site for the Dacron felt cuff to be implanted within the rectus muscle. I made a vertical incision there so as to be able to have a good angle when creating the transrectus and preperitoneal tunnel. I injected 0.25% Marcaine with epinephrine into the rectus muscle and then inserted the access needle and watched it with the laparoscope remaining anterior to the peritoneum as far as I could and directed into the pelvis. A 16-Algerian introducer was then passed over a guidewire and then through that the Merit coiled catheter was inserted. The blue stripe was kept anteriorly. The cuff was implanted within the rectus deep to the anterior rectus sheath and a pursestring suture of 0 Vicryl was placed. I had chosen preoperatively the exit site on the left chest between the breast and the OPERATIVE REPORT [id number] AURELIANOIRAM SHARP lateral border of the sternum and identified the site for the incision at that level and where the cuff should come to rest and where the exit site would be. I then made a vertical incision about midway between and to the left of the midline and measured appropriately and trimmed the 2 catheters to the proper lengths. The extension was then connected to the intra-abdominal tube with a titanium connector secured further with 2-0 Prolene ties. The catheter was pulled through a tunnel, which left the titanium connector beneath the secondary incision and the black stripe perfectly aligned in the incision over the chest. I used a 19-Algerian Bard drain trocar to put the catheter in a subcutaneous tunnel and obtain a skin exit site, which was not too large around the catheter. The Dacron felt cuff was about 3 cm superior to the skin exit site. The catheter was accessed and flushed. It was then connected to 1000 cc bag of saline, which was allowed to run into the abdomen and did so very quickly. We then placed the bag on the floor and it returned the liter of saline also very quickly. The catheter then had a titanium connector applied and a standard transfer set and was flushed with heparinized saline. The incisions were irrigated with Ancef/gentamicin solution and infiltrated and irrigated with 0.25% Marcaine. The wounds were closed with interrupted 3-0 Vicryl and running intracuticular 4-0 Monocryl and Dermabond glue. Repeat laparoscopic examination revealed the catheter to be in good position without any significant bleeding and there was no evidence of any untoward injuries to any of the surrounding viscera. The laparoscopic ports were removed. They were also closed with Vicryl and Dermabond. All of the incisions were then dressed with Maxorb Ag, Tegaderm, and Cavilon skin prep. A chlorhexidine Biopatch was used on the PD catheter at the exit site, which was then covered with a 4 x 4 Medipore dressing with a small portion of the PD catheter external to that and the transfer set and these were coiled and secured with a small piece of tape to the anterior chest wall. The patient was then awakened and extubated and taken to the recovery room in stable condition having tolerated the procedure quite well. PLAN: If she is comfortable and stable, she will be able to go home today and come back to see me in my office next week or come to see me at [facility] on Monday and I can remove her dialysis catheter then if she has not had any problems with hemodialysis access between now and then. She is given a prescription for 20 tablets of [place] 5/325, she can take 1 or 2 p.o. every 4 hours p.r.n. pain. I will arrange her to have a catheter flush by the [place] dialysis PD nurses next week. I will plan to remove the dressings from the operative sites when I see her next week and the PD nurses will be in charge of dressing and the care of the dialysis catheter's exit site. Blood loss was about 50 cc, perhaps this was unreplaced. Sponges, instruments, and needles were accounted for. No drain was used and I did not submit any surgical specimen for histopathology. TRANSINT:[id number] Voice Confirmation ID: [id number] DOCUMENT ID: [id number] OPERATIVE REPORT [id number] IRAM AREVALO JAMES MD CC: [id number] DICTATION DATE: 09/28/18 1317 PRODUCE SERVICE TEAM MEMBER: 09/28/18 1404 [facility] [address] [place] [address]
[2018-09-28 08:15] VITALS: Ht 162.6 cm; Wt 86.6 kg
[2018-09-28] MEDS ORDERED: HYDROCODON-ACE1 EAC7 PO (12:55)
--- NOTE | 2018-09-28 14:53 | NUR ---
1430- DISCONTINUED IV FROM RIGHT HAND WITH CATH INTACT, DISPOSED INTO SHARPS. APPLIED COTTON BALL AND BANDADE TO SITE. TOLERATED WELL WITHOUT COMPLAINTS.
--- NOTE | 2018-09-28 14:55 | NUR ---
1445- DISCHARGED HOME VIA WHEELCHAIR WITH DISCHARGE INSTRUCTIONS IN HAND. VERBALIZES UNDERSTANDING.
== END 2018-09-28 14:45 | disposition home or self-care (01) ==
LOC: D.OPS 05:49 → D.PAN 08:00 → D.OPS 08:00
PROVIDERS: Surgery; ATTEND Internal Medicine Nephrology
DX: N18.6 End stage renal disease (principal); Z99.2 Dependence on renal dialysis; Z01.812 Encounter for preprocedural laboratory examination

== ENCOUNTER 2019-05-21 06:23 | Outpatient (CLI) | payer MEDICARE ==
[~2019-05-21] VITALS: Ht 162.6 cm; Wt 85.9 kg
--- NOTE | ~2019-05-21 | HEMODYNAMI ---
PATIENT:IRAM BEDOYA MEDICAL RECORD: [id number] : 46 LOCATION:DLEANDRO ADMISSION DATE: 05/21/19 Generatedon:05/21/201910:23 Patient name: IRAM BEDOYA Patient #: [id number] SSN: : 1950 Date of study: 05/21/2019 Page: Of Hemodynamic Procedure Report Patient Data Patient Demographics Procedure consent was obtained First Name: IRAM Gender: Female Last Name: AURELIANO : 1950 [facility] Initial: MANSI Age: 68 year(s) Patient #: [id number] Race: Unknown Additional ID: [id number] Contact details [address]: [address] [place] [address] State: [place] City: [place] Zip code: [address] Past Medical History Allergies: No known allergies Admission Admission Data Admission Date: 05/21/2019 Admission Time: 6:23 Procedure Procedure Types Cath Procedure Peripheral Cath Diagnostic Procedure Abd/Extremity Extremities Left Lower Ext Arterio Procedure Description Procedure Date Procedure Date: 05/21/2019 Procedure Start Time: 9:48 Procedure End Time: 10:22 Procedure Staff Name Function Khurram Peck MD Performing Physician GABE PETER RT Monitor Clark Brink RT Scrub Laura Morfin RN Nurse Imani Moses RN Nurse Procedure Data Cath Procedure Fluoroscopy Diagnostic fluoroscopy Total fluoroscopy Time: 7.5 time: 7.5 min min Contrast Material Contrast Material Type Amount (ml) Isovue 300 125 Entry Location Entry Primary Successful Side Size Upsize Upsize Entry Closure Succ essful Closure Location (Fr) 1 (Fr) 2 (Fr) Remarks Device Remarks Femoral Right 5 Fr 6 Fr Angio-VIP artery Long 6Fr Diagnostic catheters Device Type Used For End Catheter Placement Merit ULTRA BOLUS FLUSH 5Fr 65CM catheter ([id number]) Procedure Medications Medication Administration Route Dosage Heparin Flush Bag added to field 3 bags (1000units/500ml NS) Lidocaine 1% added to field 20 Benadryl I.V. 25 mg Fentanyl I.V. 50 mcg Versed I.V. 1 mg Benadryl I.V. 25 mg Heparin Bolus I.A. 1000 units Fentanyl I.V. 50 mcg Versed I.V. 1 mg Heparin Bolus I.A. 1000 units Hemodynamics Rest Heart Rate: 69 (bpm) Snapshots Pre Cath Intra NCS Post Cath Vital Signs Time Heart Resp SPO2 etCO2 NIBP (mmHg) Rhythm Pain Sedation Rate (ipm) (%) (mmHg) Status Level (bpm) 9:18:00 69 19 100 0 169/66(125) NSR 0 (11) 10(A) , No pain 9:22:40 69 12 100 40.9 160/65(120) NSR 0 (11) 10(A) , No pain 9:27:13 67 17 100 37.9 160/65(120) NSR 0 (11) 10(A) , No pain 9:31:43 64 19 100 34.8 157/65(120) NSR 0 (11) 10(A) , No pain 9:36:11 65 19 100 37.1 161/64(123) NSR 0 (11) 10(A) , No pain 9:40:40 64 21 100 39.4 159/64(110) NSR 0 (11) 8(A) , No pain 9:45:00 60 16 100 17.4 133/55(99) NSR 0 (11) 8(A) , No pain 9:49:59 59 13 35.6 Measuring NSR 0 (11) 8(A) , No pain 9:50:11 59 12 100 35.6 120/55(89) NSR 0 (11) 8(A) , No pain 9:55:10 60 16 99 38.6 Measuring NSR 0 (11) 8(A) , No pain 9:55:16 60 15 100 41.6 132/64(100) NSR 0 (11) 8(A) , No pain 10:00:15 61 17 97 40.1 Measuring NSR 0 (11) 8(A) , No pain 10:00:28 61 18 100 39.4 139/54(106) NSR 0 (11) 8(A) , No pain 10:05:27 58 11 100 38.6 Measuring NSR 0 (11) 8(A) , No pain 10:05:41 58 11 100 40.1 126/52(85) NSR 0 (11) 8(A) , No pain 10:10:01 57 12 100 40.9 124/58(77) NSR 0 (11) 8(A) , No pain 10:14:19 58 14 100 39.4 113/55(86) NSR 0 (11) 8(A) , No pain 10:18:35 59 13 100 41.6 127/57(91) NSR 0 (11) 8(A) , No pain 10:22:35 0 No Cuff NSR 0 (11) 8(A) , No pain Medications Time Medication Route Dose Verified Delivered Reason Notes Effectiveness by by 9:21:30 Heparin Flush added 3 Khurram Paulson used for Bag to bags Peck Peck procedure (1000units/500ml field MD MOON NS) 9:21:53 Lidocaine 1% added 20ml Khurram Paluson for local to vial Peck Peck anesthetic field MD MOON 9:27:33 Benadryl I.V. 25 mg Khurram Sanchez used for Peck Navjot back feeder plywood layup line 9:38:44 Fentanyl I.V. 50 Khurram Diallo for sedation mcg Cisco Moses RN, MD 9:38:58 Versed I.V. 1 mg Khurram Diallo for sedation Cisco Moses RN, MD 9:39:56 Benadryl I.V. 25 mg Khurram Diallo used for Peck Josué back feeder plywood layup line 9:53:40 Heparin Bolus I.A. 1000 Khurram Paulson for units Peck Peck anticoagulation MD MOON 9:54:55 Fentanyl I.V. 50 Khurram Diallo for sedation mcg Cisco Moses RN, MD 9:55:06 Versed I.V. 1 mg Khurram Diallo for sedation Peckjigar Moses RN, MD 10:00:24 Heparin Bolus I.A. 1000 Khurram Paulson for units Peck Peck anticoagulation MD MOON Procedure Log Time Note 9:04:51 Use device set IR Diagnostic 9:04:53 ACIST Syringe (90707) opened to sterile field. 9:04:53 ACIST Hand Control (82496) opened to sterile field. 9:04:54 ACIST Manifold (23615) opened to sterile field. 9:04:54 Bag Decanter () opened to sterile field. 9:04:55 Sterile Angiographic Pack opened to sterile field. 9:04:55 Tegaderm 4 x 4 (1626W) opened to sterile field. 9:05:27 TUBING High Pressure Extension Tubing (Kimble) ([id number]) opened to sterile field. 9:05:27 DOC .035 wire (U95069) opened to sterile field. 9:05:51 NEEDLE Cook 18G 7cm Percutaneous Entry needle (F95692) opened to steril e field. 9:05:58 SHEATH 5FR [place] (ABX208) opened to sterile field. 9:07:00 ALFARO 260 wire (B36668) opened to sterile field. 9:10:41 A [employer] ULTRA BOLUS FLUSH 5Fr 65CM catheter ([id number]) was advanced over the wire and used for . 9:10:50 - 9:10:54 Laura Morfin RN sent for patient. Start room use. 9:10:55 Time tracking: Regular hours (M-F 7:00 - 5:00) 9:10:59 Plan of Care:Hemodynamics will remain stable., Cardiac rhythm will remain stable., Comfort level will be maintained., Respiratory function will remain adequate., Patient/ family verbilizes understanding of procedure., Procedure tolerated without complication., Recovers from procedure without complications.. 9:11:05 Patient received from Outpatients to IR Alert and oriented. Tansferred to table in Supine position. 9:11:07 Signed procedure consent form obtained from patient. 9:11:08 Warm blankets applied, and nicole hugger turned on for patient comfort. 9:11:08 Correct patient and procedure confirmed by team. 9:11:09 ECG and BP/O2 sat monitors applied to patient. 9:11:11 - 9:11:18 H&P Date Dictated: 05/21/2019 H&P Addendum completed by physician on day of procedure. (MUST COMPLETE FOR ALL OUTPATIENTS). 9:11:20 Pre-procedure instructions explained to patient. :11:22 Pre-op teaching completed and patient verbalized understanding. 9:11:26 Family unavailable. 9:11:30 Patient NPO since Midnight. 9:11:39 Patient allergic to No known allergies 9:11:41 Is the patient allergic to Iodine/contrast media? No. 9:12:56 Is patient on blood thinner?Yes last dose x 5 days ago 9:13:09 Patient diabetic? Yes. 9:13:10 If diabetic: On Metformin? No 9:13:13 ----Pre-sedation anethsthesia assessment.---- 9:13:15 Previous problem with sedation/anesthesia? No ? 9:13:17 Snore? No 9:13:20 Sleep apnea? No 9:13:21 Deviated septum? No 9:13:23 Opens mouth fully? Yes 9:13:24 Sticks out tongue? Yes 9:13:33 Airway obstruction? No ? 9:13:38 Dentures? No ? 9:13:40 - 9:14:16 IV patent on arrival in right hand with 0.9% NaCl at KVO. 9:14:20 Pre procedure: right dorsailis pedis pulse Doppler 9:14:22 Pre procedure: left dorsailis pedis pulse Doppler 9:14:24 Pre procedure: right posterior tibial pulse Doppler 9:14:27 Pre procedure: left posterior tibial pulse Doppler 9:14:37 Right groin area was prepped with chlora-prep and draped in sterile fashion 9:14:38 Alarms reviewed by Ruben Nunes 9:14:39 Sharps counted by scrub and verified by RTalhaNTalha 9:14:40 - 9:16:29 Vital chart was started 9:17:13 Baseline sample Acquired. 9:17:59 - 9:21:30 Heparin Flush Bag (1000units/500ml NS) 3 bags added to field was administered by Khurram Peck MD; used for procedure; Verbal order read back and verified. 9:21:53 Lidocaine 1% 20ml vial added to field was administered by Khurram Peck MD; for local anesthetic; Verbal order read back and verified. 9:27:33 Benadryl 25 mg I.V. was administered by Laura Morfin RN; used for procedure; Verbal order read back and verified. 9:36:52 DOC .035 wire (J34081) opened to sterile field. 9:36:53 Physician arrived 9:38:33 --------ALL STOP TIME OUT------ 9:38:44 Fentanyl 50 mcg I.V. was administered by Imani Moses RN; for sedation ; Verbal order read back and verified. 9:38:50 Right groin site verified by team. 9:38:54 Fire Safety Assessment: A--An alcohol-based skin anteseptic being used preoperatively., C--Open oxygen or nitrous oxide is being used. 9:38:58 Versed 1 mg I.V. was administered by Imani Moses RN; for sedation; Verbal order read back and verified. 9:39:00 5) <15 or on dialysis Very severe, or end stage kidney failure. 9:39:56 Benadryl 25 mg I.V. was administered by Imani Moses RN; used for procedure; Verbal order read back and verified. 9:40:02 Procedure started. 9:40:02 Full Disclosure recording started 9:48:00 Local anesthetic to right femoral artery with Lidocaine 1% by Khurram Peck MD.INITIAL ACCESS ONLY 9:48:41 A 5 Fr sheath was inserted into the Right Femoral artery 9:48:41 Sheath upsized to a 6 Fr Long. 9:48:44 GLIDE WIRE .038 180cm ANGLED (ZL3344) opened to sterile field. 9:48:45 GLIDE CATHETER 4FR Cobra 2 65cm (CG409) opened to sterile field. 9:48:56 SHEATH 6FR Destination (RSR01) opened to sterile field. 9:48:56 INFLATOR BasixTOUCH (ZZ3839) opened to sterile field. 9:53:40 Heparin Bolus 1000 units I.A. was administered by Khurram Peck MD; for anticoagulation; Verbal order read back and verified. 9:54:55 Fentanyl 50 mcg I.V. was administered by Imani Moses RN; for sedation ; Verbal order read back and verified. 9:55:06 Versed 1 mg I.V. was administered by Imani Moses RN; for sedation; Verbal order read back and verified. 9:58:05 Inflate balloon Inflation number: 1 A IN.PACT Admiral 6 x 40 x 130 DCB Balloon ([id number]) was prepped and advanced across the Undefined1 , then inflated . 10:00:24 Heparin Bolus 1000 units I.A. was administered by Khurram Peck MD; for anticoagulation; Verbal order read back and verified. 10:01:54 Inflate balloon Inflation number: 1 A IN.PACT Admiral 5 x 40 x 130 DCB Balloon ([id number]) was prepped and advanced across the Undefined2 , then inflated . 10:07:44 Sheath removed intact; hemostasis achieved with Angio-VIP 6Fr to the Right Femoral artery. 10:07:49 ANGIOSEAL-VIP PLUS 6 FR opened to sterile field. 10:15:07 Procedure ended.(Physican Out) 10:16:26 Fluoroscopy time 07.50 minutes. 10:16:44 Dose Area Product 339 mGy/cm. 10:16:49 Contrast amount:Isovue 300 125ml. 10:16:51 Sharps counted by scrub and verified by R.N. 10:16:59 Post right femoral artery:stable, soft, clean and dry 10:17:03 Post procedure instruction explained to patient.Patient verbalizes understanding. 10:17:03 Procedure and supply charges have been captured, reviewed, submitted an d are correct. 10::22 Vital chart was stopped 10::25 Operative report dictated upon procedure completion. 10:22:26 See physician's report for complete and final results. 10:22:28 Procedure ended. 10:22:28 Full Disclosure recording stopped 10:22:39 End room use (Document Last) Intervention Summary Intervention Notes Time ActionType Lesion and Equipment Used Action# Pressure Duration Attributes 9:58:05 Inflate Undefined1 IN.PACT 1 0 00:00 balloon Admiral 6 x 40 x 130 DCB Balloon ([id number]) 10:01:54 Inflate Undefined2 IN.PACT 1 0 00:00 balloon Admiral 5 x 40 x 130 DCB Balloon ([id number]) Device Usage Item Name Manufacture Quantity Catalog Number Hospital Part Current [facility] Lot# / Charge Number Stock Stock Serial# Code ACIST Syringe Acist 1 84083 370035 306985 483169 20 (94367) Medical Systems Inc ACIST Hand Acist 1 67217 052823 229310 412783 5 Control Medical (53838) Systems Inc ACIST Manifold Acist 1 04695 263161 511792 974649 5 (79385) Medical Systems Inc Bag Decanter Microtek 1 2001S 149085 85788 479013 5 (2002S) Medical Inc. Sterile Cardinal 1 [id number] 040873 462196 5 Angiographic Health Pack Tegaderm 4 x 4 3M 1 1626W 556905 779431 767557 5 (1626W) DOC Extension Cassidy 1 08227 853678 867680 140310 5 wire (98336) Vascular TUBING High Merit 1 [id number] 425734 00242 174400 10 Pressure Medical Extension Tubing (Kimble) (RX3892C) DOC .035 wire Cook Medical 2 D60712 789070 091293 5 (H48894) NEEDLE Proactive Comfort Medical 1 A62230 551000 89921 340678 5 18G 7cm Percutaneous Entry needle (T13460) SHEATH 5FR Terumo 1 EQC473 443615 501921 827664 5 [place] (KAM897) ALFARO 260 wire Metrix [employer] Inc. Medical 1 I37684 958990 04231 462702 5 (O29691) Merit ULTRA Merit 1 [id number] 763144 792850 5 BOLUS FLUSH Medical 5Fr 65CM catheter ([id number]) GLIDE WIRE Terumo 1 SZ2848 504367 913965 5 .038 180cm ANGLED (KU2973) GLIDE CATHETER Terumo 1 CG409 689022 629998 5 4FR Cobra 2 65cm (CG409) SHEATH 6FR Terumo 1 RSR01 799624 91234 334180 5 Destination (RSR01) INFLATOR Merit 1 OE7885 420344 535735 896357 5 Metabar Medical (ZN5360) IN.PACT Medtronic 1 [id number] 457372 590586 683993 5 Admiral 6 x 40 x 130 DCB Balloon ([id number]) IN.PACT Medtronic 1 [id number] 779241 837104 401495 5 Admiral 5 x 40 x 130 DCB Balloon ([id number]) ANGIOSEAL-VIP St Kofi 1 906209 509271 222675 338187 5 PLUS 6 FR Signature Audit [place] Stage Time Signature Unsigned Intra-Procedure 05/21/2019 GABE PETER RT 10:22:56 AM (R) [place] [id number] [facility] [place] [address]
[2019-05-21 06:55] LABS: BASOPHILS 0.3 % (0-2); EOSINOPHILS 2.8 % (0-7); HEMATOCRIT 33.5 % (36.0-48.0); HEMOGLOBIN 11.2 g/dL (12-16); IMMATURE GRANULOCYTES 0.4 % (0-5); LYMPHOCYTES 27.9 % (15-50); MCH 33.6 pg (26.0-34.0); MCHC 33.4 g/dL (31.0-37.0); MCV 100.6 fL (80.0-100.0); MEAN PLATELET VOLUME 10.4 fL (7.4-10.4); MONOCYTES 8.6 % (2-11); PLATELET COUNT 214 10x3/uL (130-400); RBC 3.33 10x6/uL (4.00-5.40); WBC 12.6 10x3/uL (4.8-10.8)
[2019-05-21 07:01] LABS: ANION GAP 14.7 mmol/L (8-16); APTT 33.8 SECONDS (22.8-39.4); CARBON DIOXIDE 31.5 mmol/L (21.0-32.0); CREATININE - SERUM 8.3 mg/dL (0.6-1.3); POTASSIUM - SERUM 3.2 mmol/L (3.5-5.1); PROTIME 13.1 SECONDS (11.6-15.0)
[2019-05-21] MEDS ORDERED: COLACE100 MG PO (07:37)
[2019-05-21 07:43] VITALS: Ht 162.6 cm; Wt 85.9 kg
--- NOTE | 2019-05-21 10:51 | NUR ---
1030 SEE POST PROCEDURE CHECKLIST FOR VITAL SIGN TRENDS. 1040 CULLEN BAUM RN PHONED TO CHECK ABOUT ASPRIN AND PLAVIX FOR TODAY, SAID TO GIVE AT NOON TODAY AND INFORM PT TO TAKE DAILY FOR LIFE.
--- NOTE | 2019-05-21 15:41 | NUR ---
1440 [facility]55 DC INSTS GIVEN VOICED UNDERSTANDING RELEASED IN WC WITH ESCORT.
== END 2019-05-21 14:55 | disposition home or self-care (01) ==
LOC: D.SP 06:23 → D.RAD 09:00 → D.SP 09:00
PROVIDERS: Specialist; ATTEND Internal Medicine Nephrology
DX: R26.9 Unspecified abnormalities of gait and mobility (principal); R53.1 Weakness; R93.6 Abnormal findings on diagnostic imaging of limbs; I70.263 Atherosclerosis of native arteries of extremities with gangrene, bilateral legs; I70.209 Unspecified atherosclerosis of native arteries of extremities, unspecified extremity

== ENCOUNTER → 2019-08-15 15:25 | Outpatient (CLI) | payer MEDICARE ==
[2019-05-21 07:43] VITALS: BMI 32.5
[~2019-08-15 15:25] MED LIST changes: +COLACE100 MG PO
== END | disposition home or self-care (01) ==
LOC: D.RAD 15:25
PROVIDERS: ATTEND Internal Medicine Nephrology
DX: N18.6 End stage renal disease (principal); R06.02 Shortness of breath; I10 Essential (primary) hypertension; R09.89 Other specified symptoms and signs involving the circulatory and respiratory systems

== ENCOUNTER → 2019-09-27 08:14 | Outpatient (CLI) | payer MEDICARE ==
[2019-05-21 07:43] VITALS: BMI 32.5
== END | disposition home or self-care (01) ==
LOC: D.HCCARDIO 08:14
PROVIDERS: ATTEND Internal Medicine Cardiovascular Disease
DX: I25.10 Atherosclerotic heart disease of native coronary artery without angina pectoris (principal)

== ENCOUNTER 2019-10-09 07:30 | Outpatient (CLI) | payer MEDICARE ==
[~2019-10-09] VITALS: Ht 162.6 cm; Wt 89.2 kg
--- NOTE | ~2019-10-09 | HEMODYNAMI ---
PATIENT:IRAM BEDOYA MEDICAL RECORD: [id number] : 46 LOCATION:[facility] ADMISSION DATE: 10/09/19 Generatedon:10/09/201910:15 Patient name: IRAM BEDOYA Patient #: [id number] SSN: : 1950 Date of study: 10/09/2019 Page: Of Hemodynamic Procedure Report Patient Data Patient Demographics Procedure consent was obtained First Name: IRAM Gender: Female Last Name: AURELIANO : 1950 [facility] Initial: MANSI Age: 69 year(s) Patient #: [id number] Race: Additional ID: [id number] Contact details [address]: [address] [place] [address] State: [place] City: [place] Zip code: [address] Past Medical History History of disease Date Diagnosis Comments CAD CHF PVD Chronic lung disease Allergies: No known allergies Admission Admission Data Admission Date: 10/09/2019 Admission Time: 7:30 Insurance Payor: Medicare Height (in.): 64 BSA: 1.94 (m2) Height (cm.): 162.56 BMI: 33.81 (kg/m2) Weight (lbs.): 197 Weight (kg.): 89.36 Lab Results Lab Result Date: 10/09/2019 Lab Result Time: 0:00 Biochemistry Name Units Result Min Max BUN mg/dl 57 --(----)-* 7 18 Creatinine mg/dl 10.1 --(----)-* 0.6 1.3 CBC Name Units Result Min Max Hemoglobin g/dl 12.8 -*(----)-- 13.5 17.5 Procedure Procedure Types Cath Procedure Diagnostic Procedure [facility] w/Coronaries w/Grafts PCI Procedure Coronary Stent AMI/SVG/DOCUMENT ANALYST PTCA or Stent SVG-BMS/CUCO Initial Procedure Description Procedure Date Procedure Date: 10/09/2019 Procedure Start Time: 9:35 Procedure End Time: 10:10 Procedure Staff Name Function Redd Sanabria RT Monitor Yasmeen Garcia RT Scrub Carson Buitrago RN Nurse Heriberto Spencer MD Performing Physician Procedure Data Cath Procedure Fluoroscopy Diagnostic fluoroscopy Total fluoroscopy Time: 5.9 time: 5.9 min min Diagnostic fluoroscopy Total fluoroscopy dose: dose: 1010 mGy 1010 mGy Contrast Material Contrast Material Type Amount (ml) Isovue 300 142 Entry Location Entry Primary Successful Side Size Upsize Upsize Entry Closure Succes sful Closure Location (Fr) 1 (Fr) 2 (Fr) Remarks Device Remarks Femoral Right 5 Fr 6 Fr Exoseal artery Short Estimated blood loss: 20 ml Diagnostic catheters Device Type Used For End Catheter Placement MULTIPACK JL 4.0 5Fr Procedure catheter MULTIPACK 3DRC 5Fr Procedure catheter DIAGNOSTIC AR MOD 5Fr Procedure Catheter ([id number]) MULTIPACK Pigtail 5 Fr Procedure catheter Procedure Medications Medication Administration Route Dosage Oxygen etCO2 Nasal cannula 2 l/min Lidocaine 2% added to field 20 Heparin Flush Bag added to field 2 bags (1000units/500ml NS) 0.9% NaCl I.V. Versed I.V. 1 mg Fentanyl I.V. 50 mcg Versed I.V. 1 mg Fentanyl I.V. 50 mcg Heparin Bolus I.V. 4000 units Cardene I.C. 300 mcg Integrilin (Bolus I.V. 7.9 ml 2mg/ml) Zofran I.V. 4 mg Morphine I.V. 2 mg Morphine I.V. 2 mg Heparin Bolus I.V. 2000 units Heparin Bolus I.V. 2000 units Hemodynamics Rest BSA: 1.94 (m2) HGB: 12.8 (g/dl) O2 Consumption: Estimated: 175.3 (ml/min) O2 Con sumption indexed: Estimated:90.36 (ml/min/m) Heart Rate: 66 (bpm) Pressure Samples Time Site Value (mmHg) Purpose Heart Use Rate(bpm) 9:36 AO 111/33(54) Snapshot 60 9:44 LV 148/5,10 Snapshot 59 9:44 LV 146/4,9 EDP 59 Snapshots Pre Cath Intra NCS Post Cath Vital Signs Time Heart Resp SPO2 etCO2 NIBP (mmHg) Rhythm Pain Sedation Rate (ipm) (%) (mmHg) Status Level (bpm) 9:16:15 65 17 99 42 151/100(138) NSR 0 (11) , 10(A) No pain 9:18:10 65 17 100 40.5 144/55(106) NSR 0 (11) , 10(A) No pain 9:29:32 60 16 100 45.7 132/57(0) NSR 0 (11) , 10(A) No pain 9:34:27 57 14 99 33.7 130/44(0) NSR 0 (11) , 10(A) No pain 9:39:54 58 13 98 45 135/48(72) NSR 0 (11) , 9(A) No pain 9:44:11 59 15 99 44.2 141/45(91) NSR 0 (11) , 9(A) No pain 9:48:29 58 15 100 44.9 151/45(100) NSR 0 (11) , 9(A) No pain 9:52:51 57 14 96 46.5 133/40(86) NSR 0 (11) , 10(A) No pain 9:57:05 58 12 99 49.4 122/43(81) NSR w/ ST 0 (11) , 10(A) Elevation No pain 10:02:04 62 18 99 45 Measuring NSR w/ ST 8 (11) , 10(A) Elevation Utterly horrible 10:02:14 62 13 99 45.7 153/53(101) NSR w/ ST 8 (11) , 10(A) Elevation Utterly horrible 10:06:30 63 14 100 40.5 157/58(102) NSR w/ ST 7 (11) , 10(A) Elevation Very intense Medications Time Medication Route Dose Verified Delivered Reason Notes Effectiveness by by 9:20:47 Oxygen etCO2 2 Heriberto Byrd used for Nasal l/min St Gregorio Buitrago RN procedure cannula 9:21:22 Lidocaine 2% added 20ml Heriberto Louis for local to vial [facility] anesthetic field MD MOON 9:21:27 0.9% NaCl I.V. kvo Heriberto Byrd Per physician pt le ft ml/hr St Gregorio Buitrago RN arm MD azar, currently performs peritoneal dialysis daily. 9:21:27 Heparin Flush added 2 Heriberto Louis used for Bag to bags TjGregorio Spencer procedure (1000units/500ml field MD MOON NS) 9:28:19 Fentanyl I.V. 50 Heriberto Byrd for sedation mcg [address] Gregorio Buitrago RN, MD 9:36:13 Versed I.V. 1 mg Heriberto Byrd for sedation St Gregorio Buitrago RN, MD 9:36:45 Versed I.V. 1 mg Heriberto Byrd for sedation St Gregorio Buitrago RN, MD 9:36:49 Fentanyl I.V. 50 Heriberto Byrd for sedation mcg [facility] Gregorio Buitrago RN, MD 9:47:07 Heparin Bolus I.V. 4000 Heriberto Byrd for verif ied units St Gregorio Buitrago RN anticoagulation with dr MD coffman 9:47:16 Cardene I.C. 300 [address] for mcg St Gregroio Hinton MD, MD 10:00:24 Integrilin I.V. 7.9 Heriberto Byrd for waste d 2.1 (Bolus 2mg/ml) ml St Gregorio Buitrago RN antiplatelet ml of vial MD therapy 10:03:57 Zofran I.V. 4 mg Heriberto Byrd Per physician St Gregorio Buitrago RN, MD 10:05:17 Morphine I.V. 2 mg Heriberto Byrd for chest pain St Gregorio Buitrago RN, MD 10:06:30 Morphine I.V. 2 mg Heriberto Byrd for chest pain St Gregorio Buitrago RN, MD 10:14:21 Heparin Bolus I.V. 2000 Heriberto Byrd Per physician units St Gregorio Buitrago RN, MD 10:15:14 Heparin Bolus I.V. 2000 Heriberto Byrd Per physician units St Gregorio Buitrago RN, MD Procedure Log Time Note 8:34:04 Informed consent obtained and on chart 8:38:51 Patient Height : 64 inches 8:39:15 Patient Weight : 197 lbs 8:39:39 Insurance Payor : Medicare 8:39:48 Diagnostic Cath Status : Elective 9:01:40 Carson Buitrago RN sent for patient. Start room use. 9:01:48 Time tracking: Regular hours (M-F 7:00 - 5:00) 9:02:07 Plan of Care:Hemodynamics will remain stable., Cardiac rhythm will remain stable., Comfort level will be maintained., Respiratory function will remain adequate., Patient/ family verbilizes understanding of procedure., Procedure tolerated without complication., Recovers from procedure without complications.. 9:08:42 Maximum allowable contrast dose (3.7 X eGFR X 0.75)? ml. 9:08:51 Patient received from Pre/Post Procedure Room to [facility] Alert and oriented. Tansferred to table in Supine position. 9:08:53 Warm blankets applied, and nicole hugger turned on for patient comfort. 9:08:55 Correct patient and procedure confirmed by team. 9:08:59 ECG and BP/O2 sat monitors applied to patient. 9:14:44 Vital chart was started 9:16:10 Baseline sample Acquired. 9:16:15 Rhythm: sinus rhythm 9:16:17 Full Disclosure recording started 9:16:35 H&P Date Dictated: 09/19/2019 Within 30 days and on chart., H&P Addendum completed by physician on day of procedure. (MUST COMPLETE FOR ALL OUTPATIENTS). 9:16:37 Pre-procedure instructions explained to patient. 9:16:46 Family in waiting room. 9:16:49 Patient NPO since Midnight. 9:16:59 Is the patient allergic to Iodine/contrast media? No. 9:17:03 Is patient on blood thinner?Yes 9:17:07 ACC The patient was administered the following blood thiners within the last 24 hours: ACCPlavix 9:17:16 Patient diabetic? Yes. 9:17:21 If diabetic: On Metformin? No 9:17:30 Patient not . Patient is over age 55. 9:17:35 ----Pre-sedation anethsthesia assessment.---- 9:17:37 Previous problem with sedation/anesthesia? No ? 9:17:45 Snore? Yes 9:17:46 Sleep apnea? Yes 9:17:49 Deviated septum? No 9:17:51 Opens mouth fully? Yes 9:17:52 Sticks out tongue? Yes 9:18:05 Dentures? No ? 9:18:13 Airway obstruction? No ? 9:18:21 Pre procedure: right dorsailis pedis pulse 1+ Palpable, but thready & weak; easily obliterated 9:18:25 Patient pain scale 0/10 ?. 9:18:37 IV patent on arrival in right wrist with 0.9% NaCl at KVO. 9:19:21 Lab Result : Hemoglobin 12.8 g/dl 9:19:21 Lab Result : Creatinine 10.1 mg/dl 9:19:21 Lab Result : BUN 57 mg/dl 9:19:26 Lab results completed and on chart. 9:20:47 Oxygen 2 l/min etCO2 Nasal cannula was administered by Carson Buitrago RN; used for procedure; Verbal order read back and verified. 9:: Lidocaine 2% 20ml vial added to field was administered by Heriberto Spencer MD; for local anesthetic; Verbal order read back and verified. 9:: 0.9% NaCl kvo ml/hr I.V. was administered by Carson Buitrago RN; Per physician; pt left arm reserve, currently performs peritoneal dialysis daily. Verbal order read back and verified. 9:: Heparin Flush Bag (1000units/500ml NS) 2 bags added to field was administered by Heriberto Spencer MD; used for procedure; Verbal order read back and verified. 9:23:42 Risk of Mortality: 1.6% 9:24:07 Risk of blood transfusion: 2.8% 9:24:13 Risk of JORGE: 18.3% 9:24:17 Right groin area was prepped with chlora-prep and draped in sterile fashion 9:24:19 Alarms reviewed by R. N. 9:24:20 Sharps counted by scrub and verified by R.N. 9:25:02 Procedure type changed to Cath procedure, Diagnostic procedure, LHC, LHC w/Coronaries w/Grafts, PCI procedure, Coronary Stent, AMI/SVG/DOCUMENT ANALYST PTCA or Stent, SVG-BMS/CUCO Initial 9:25:08 Use device set Femoral Dx 9:25:09 ACIST Syringe (12401) opened to sterile field. 9:25:10 Bag Decanter (2002) opened to sterile field. 9:25:11 Medline Cath Pack ([id number]) opened to sterile field. 9:25:13 ACIST Hand Control (87135) opened to sterile field. 9:25:14 ACIST Manifold (59076) opened to sterile field. 9:25:17 DIAGNOSTIC Multipack 5Fr catheter set ([id number]) opened to sterile field. 9:25:19 Tegaderm 4 x 4 (1626W) opened to sterile field. 9:25:22 SHEATH 5FR Broadway ([id number]) opened to sterile field. 9:25:23 EMERALD Guide Wire (163-661) opened to sterile field. 9:26:09 Physician arrived 9:26:10 --------ALL STOP TIME OUT------ 9:26:11 Final Timeout: patient, procedure, and site verified with staff and physician. All members of the team are in agreement. 9:26:14 Right groin site verified by team. 9:26:19 Fire Safety Assessment: A--An alcohol-based skin anteseptic being used preoperatively., C--Open oxygen or nitrous oxide is being used., D--An ESU, laser, or fiber-optic light is being used. 9:26:42 Physical assessment completed. ASA score P 3 - A patient with severe systemic disease as per Heriberto Spencer MD. 9:26:54 5) <15 or on dialysis Very severe, or end stage kidney failure. 9:27:01 Sedation plan: IV Moderate Sedation Medication:Versed, Fentanyl 9:28:19 Fentanyl 50 mcg I.V. was administered by Carson Buitrago RN; for sedation; Verbal order read back and verified. 9:28:28 A MULTIPACK JL 4.0 5Fr catheter was advanced over the wire and used for Procedure. 9:34:46 Procedure started. 9:35:02 Local anesthetic to right femoral artery with Lidocaine 2% by Heriberto Spencer MD.INITIAL ACCESS ONLY 9:35:46 A 5 Fr sheath was inserted into the Right Femoral artery 9:36:13 Versed 1 mg I.V. was administered by Carson Buitrago RN; for sedation; Verbal order read back and verified. 9:36:15 Zero performed for pressure channel P1 9:36:45 Versed 1 mg I.V. was administered by Carson Buitrago RN; for sedation; Verbal order read back and verified. 9:36:49 Fentanyl 50 mcg I.V. was administered by Carson Buitrago RN; for sedation; Verbal order read back and verified. 9:37:06 LCA angiography performed. 9:37:49 Catheter removed. 9:38:17 A MULTIPACK 3DRC 5Fr catheter was advanced over the wire and used for Procedure. 9:38:46 RCA angiography performed. 9:39:09 SVG to Diag angiography performed. 9:40:57 CHADWICK to LAD angiography performed. 9:41:12 Catheter removed. 9:41:39 A DIAGNOSTIC AR MOD 5Fr Catheter ([id number]) was advanced over the wire and used for Procedure. 9:42:46 SVG to RCA angiography performed. 9:43:05 Catheter removed. 9:43:36 A MULTIPACK Pigtail 5 Fr catheter was advanced over the wire and used for Procedure. 9:44:38 LV gram done using GÓMEZ 9:44:50 EF : 20 % 9:45:03 LV hemodynamics recorded. 9:45:11 Catheter removed. 9:45:16 SHEATH 6FR [place] ([id number]) opened to sterile field. 9:45:18 INFLATOR Merit BasixCompak (LD6720) opened to sterile field. 9:45:27 WHISPER 300cm guide wire ([id number]) opened to sterile field. 9:45:54 GUIDE 6FR AR 2.0 catheter ([id number]) opened to sterile field. 9:46:09 Proceeding to intervention. 9:46:21 Sheath upsized to a 6 Fr Short. 9:46:59 Pre PCI Site: Vein Graft pRCA has 95% stenosis. 9:47:07 Heparin Bolus 4000 units I.V. was administered by Carson Buitrago RN; for anticoagulation; verified with dr coffman Verbal order read back and verified. 9:47:08 6 Fr AR 2 guide catheter was inserted over the wire 9:47:16 WHISPER wire advanced. 9:47:16 Cardene 300 mcg I.C. was administered by Heriberto Spencer MD; for vasodilation; Verbal order read back and verified. 9:48:59 Wire removed. damaged. 9:49:15 WHISPER 300cm guide wire ([id number]) opened to sterile field. 9:49:30 NEW WHISPER wire advanced. 9:50:11 Wire advanced across lesion. 9:53:37 Inflate balloon Inflation number: 1 A EUPHORA 2.5 x 15 Balloon ([id number]) was prepped and advanced across the Undefined2 95, then inflated to 12 MAGO for 0:30 (min:sec) 50. 9:54:26 Inflation number: 1 The EUPHORA 2.5 x 15 Balloon ([id number]) was reinflated across the Aorta Right -> Dist RCA1 , to 12 MAGO for 0:30 (min:sec) . 9:57:14 Place stent Inflation Number: 1 A BISHNU RX 3.0 x 18 stent ([id number]) was prepped and advanced across the Aorta Right -> Dist RCA . The stent was deployed at 14 MAGO for 0:30 (min:sec) . 10:00:24 Integrilin (Bolus 2mg/ml) 7.9 ml I.V. was administered by Carson Buitrago RN; for antiplatelet therapy; wasted 2.1 ml of vial Verbal order read back and verified. 10:02:22 EXOSEAL 6Fr (EX600) opened to sterile field. 10:02:36 Stent catheter was removed intact over wire. 10:02:38 Wire removed. 10:02:39 Guide catheter removed. 10:02:59 Sheath removed intact; hemostasis achieved with Exoseal to the Right Femoral artery. 10:03:06 Procedure ended.(Physican Out) 10:03:28 Fluoroscopy time 05.90 minutes. 10:03:47 Fluoroscopy dose: 1010 mGy 10:03:47 Flurop Dose total: 1010 10:03:52 Dose Area Product 133 mGy/cm. 10:03:57 Zofran 4 mg I.V. was administered by Carson Buitrago RN; Per physician; Verbal order read back and verified. 10:03:58 Contrast amount:Isovue 300 142ml. 10:04:03 Maximum allowable dose exceeded? Yes. 10:04:06 Sharps counted by scrub and verified by R.N. 10:04:24 ACT drawn and resulted at 218 seconds. (normal therapeutic range 180-240 seconds). 10:04:25 Insertion/operative site no bleeding no hematoma. 10:04:30 Post-op/insertion site Right Femoral artery dressed using a 4 x 4 and Tegaderm. 10:04:35 Post right femoral artery:stable 10:04:40 Post Procedure Pulses reassessed and unchanged 10:04:46 Post-procedure physical assessment completed. ASA score P 3 - A patient with severe systemic disease as per Heriberto Spencer MD. 10:04:51 Post procedure rhythm: unchanged., sinus rhythm 10:04:55 Estimated blood loss: 20 ml 10:04:58 Patient needs reinforcement of post procedure teaching. 10:05:17 Morphine 2 mg I.V. was administered by Carson Buitrago RN; for chest pain; Verbal order read back and verified. 10:05:28 Procedure and supply charges have been captured, reviewed, submitted and are correct. 10:06:11 [facility] Findings: MVD- PCI performed (see procedure note) 10:06:17 Operative report dictated upon procedure completion. 10:06:20 See physician's report for complete and final results. 10:06:25 Report given to Pre/Post Procedure Room. 10:06:30 Morphine 2 mg I.V. was administered by Carson Buitrago RN; for chest pain; Verbal order read back and verified. 10:10:35 Patient transfered to Pre/Post Procedure Room with Stretcher. 10::38 Full Disclosure recording stopped 10::38 Procedure ended. 10:14:21 Heparin Bolus 2000 units I.V. was administered by Carson Buitrago RN; Per physician; Verbal order read back and verified. 10:15:14 Heparin Bolus 2000 units I.V. was administered by Carson Buitrago RN; Per physician; Verbal order read back and verified. Intervention Summary Intervention Notes Time ActionType Lesion and Equipment Used Action# Pressure Duration Attributes 9:53:37 Inflate Undefined2 EUPHORA 2.5 x 1 12 00:30 balloon 15 Balloon ([id number]) 9:54:26 Reinflate Aorta Right EUPHORA 2.5 x 1 12 00:30 balloon -> Dist 15 Balloon RCA1 ([id number]) 9:57:14 Place stent Aorta Right BIHSNU RX 3.0 x 1 14 00:30 -> Dist RCA 18 stent ([id number]) Device Usage Item Name Manufacture Quantity Catalog Hospital Part [facility] Lot# / Number Charge Number Stock Stock Serial# Code ACIST Syringe Acist 1 40032 264019 512288 633717 20 (83148) Medical Systems Inc Bag Decanter Microtek 1 145280 82345 535959 5 () Medical Inc. Medline Cath Medline 1 [id number] 724047 61795 476839 5 Pack ([id number]) ACIST Hand Acist 1 31101 850280 104706 765982 5 Control Medical (35913) Systems Inc ACIST Manifold Acist 1 57874 250390 171038 285929 5 (18178) Medical Systems Inc DIAGNOSTIC Cardinal 1 QL6547 060539 47811 695333 30 Multipack 5Fr Health catheter set (WR2790) Tegaderm 4 x 4 3M 1 1626W 337534 518847 092699 5 (1626W) SHEATH 5FR Terumo 1 QEH851 966227 656754 972633 5 [address] (XKS028) EMERALD Guide Cardinal 1 502-455 289809 074746 157740 5 Wire (502-455) Health MULTIPACK JL Cardinal 1 223571 5 4.0 5Fr Health catheter MULTIPACK 3DRC Cardinal 1 892092 5 5Fr catheter Health DIAGNOSTIC AR Cardinal 1 [id number] 080019 289536 892625 15 MOD 5Fr Health Catheter (309565H) MULTIPACK Cardinal 1 800130 5 Pigtail 5 Fr Health catheter SHEATH 6FR Terumo 1 MSK040 152613 942149 755295 [address] (IPW651) INFLATOR Merit Merit 1 KP9944 045640 860058 353976 15 DispopwaLeanplum (QS1618) WHISPER 300cm Cassidy 2 [id number] 895737 928456 210538 5 guide wire Vascular ([id number]) GUIDE 6FR AR Medtronic 1 [id number] 191122 02088 738274 1 2.0 catheter ([id number]) EUPHORA 2.5 x Medtronic 1 [id number] 366667 279304 331461 5 [id number] 15 Balloon ([id number]) BISHNU RX 3.0 x Medtronic 1 [id number] 823510 2877268 156315 5 [id number] 18 stent ([id number]) EXOSEAL 6Fr Cardinal 1 EX600 494958 312640 973087 10 (EX600) Health Signature Audit Benicia Stage Time Signature Unsigned Intra-Procedure 10/09/2019 Carson Buitrago RN 10:13:24 AM Intra-Procedure 10/09/2019 Heriberto Fay 10:15:43 AM Gregorio MOON Signatures Monitor : Redd Sanabria RT Signature : Date : Time : Nurse : Carson Buitrago RN Signature : Date : Time : Performing Physician : Signature : Heriberto Spencer MD Date : Time : [facility] [address] [place] [address]
[2019-10-09] MEDS ORDERED: SENSIPAR30 MG PO (08:22)
[2019-10-09] MEDS ORDERED: RENVELA800 MG PO (08:22)
[2019-10-09 08:35] VITALS: BP 118/61; Ht 162.6 cm; Wt 89.2 kg
[2019-10-09 08:45] LABS: BASOPHILS 0.4 % (0-2); EOSINOPHILS 3.2 % (0-7); HEMATOCRIT 40.4 % (36.0-48.0); HEMOGLOBIN 12.8 g/dL (12-16); IMMATURE GRANULOCYTES 0.4 % (0-5); MCH 34.8 pg (26.0-34.0); MCHC 31.7 g/dL (31.0-37.0); MCV 109.8 fL (80.0-100.0); MEAN PLATELET VOLUME 10.4 fL (7.4-10.4); MONOCYTES 9.7 % (2-11); NEUTROPHILS 64.3 % (40-80); RBC 3.68 10x6/uL (4.00-5.40); RDW 15.9 % (11.5-14.5); WBC 11.8 10x3/uL (4.8-10.8)
[2019-10-09 08:46] LABS: PLATELET COUNT 270 10x3/uL (130-400)
[2019-10-09 08:58] LABS: ANION GAP 15.8 mmol/L (8-16); CALCIUM 8.7 mg/dL (8.5-10.1); CARBON DIOXIDE 30.4 mmol/L (21.0-32.0); CREATININE - SERUM 10.1 mg/dL (0.6-1.3); LDL-HDL RATIO 2.4 ratio (1.5-3.5); POTASSIUM - SERUM 5.2 mmol/L (3.5-5.1)
--- NOTE | 2019-10-09 10:20 | NUR ---
PT RECEIVED BACK TO ROOM FOR RECOVERY. PT AWAKE, STATES CHEST DISCOMFORT IS BETTER THAT IT WAS BACK IN HAND SALTER, NOW 5/10 AND GETTING BETTER. PT PLACED ON CARDIAC MONITORS AND O2 VIA NC AT 2L. HR 63 SLIGHT ELEVATION IN T WAVE. DR ROSAS AWARE. BP 120/98, RR 14, SAT 98. IV PATENT INFUSING VIA R ARM PER ORDERS. R GROIN W 6FR EXOCELE, DRESSING CDI NO S/S HEMATOMA OR BLEEDING. LEG PINK AND WARM, PEDAL PULSES PALAPBLE. CALL LIGHT IN REACH, AT BS
--- NOTE | 2019-10-09 10:45 | NUR ---
PT RESTING W/O COMPLAINTS. STATES CHEST PAIN IS BETTER, STILL BURPING. SIPS OF WATER GIVEN PER PT REQUEST. R GROIN SOFT, DRESSING REMAINS CDI NO S/S HEMATOMA OR BLEEDING. CALL LIGHT IN REACH, PT DENIES NEEDS AT THIS TIME.
--- NOTE | 2019-10-09 11:25 | NUR ---
PT C/O CHEST PAIN COMING BACK, DR ROSAS NOTIFIED, ORDERS RECEIVED. 4MG MORPHINE GIVEN SIVP PER ORDERS. R GROIN SOFT, DRESSING REMAINS CDI NO S/S HEMATOMA NOTED. VSS AT THIS TIME., CALL LIGHT IN REACH.
--- NOTE | 2019-10-09 11:50 | NUR ---
PT SLEEPING, SNORING. VSS. STATES SHE HAS NOT COMPLAINED OF ANY PAIN SINCE THE MORPHINE WAS GIVEN. R GROIN SOFT, DRESSING CDI NO S/S HEMATOMA OR BLEEDING. CALL LIGHT IN REACH
--- NOTE | 2019-10-09 12:25 | NUR ---
PT STILL SLEEPING, VSS. R GROIN SOFT, DRESSING CDI NO S/S HEMATOMA OR BLEEDING NOTED. CALL LIGHT IN REACH, REMAINS AT BS
--- NOTE | 2019-10-09 13:00 | NUR ---
PT RESTING COMFORTABLY, DENIES PAIN OR NEEDS. PT IS NO LONGER BURPING LIKE BEFORE. R GROIN SOFT, DRESSING REMAINS CDI NO S/S HEMATOMA OR BLEEDING. VSS AT PRESENT. CALL LIGHT IN REACH. AT BS
--- NOTE | 2019-10-09 13:10 | NUR ---
R GROIN SOFT, DRESSING CDI NO S/S HEMATOMA OR BLEEDING. HOB ELEVATED SLIGHTLY. DT SPRITE GIVEN. PT DENIES PAIN .
--- NOTE | 2019-10-09 13:45 | NUR ---
PT RESTING COMFORTABLY, DENIES PAIN OR DISCOMFORT. PT OFFERED SANDWICH, SHE DECLINES STATES GOING TO EAT WHEN DISCHARGED. R GROIN SOFT, DRESSING REMAINS CDI NO S/S HEMATOMA OR BLEEDING. CALL LIGHT IN REACH
--- NOTE | 2019-10-09 14:20 | NUR ---
DISCHARGE INSTRUCTIONS REVIEWED W PT AND , BOTH VERBALIZED UNDERSTANDING. IV REMOVED W CATH INTACT, MONITORS AND O2 REMOVED. GROIN REMAINS SOFT, NO S/S HEMATOMA OR BLEEDING NOTED. PT UP TO DRESS FOR DISCHARGE
--- NOTE | 2019-10-09 14:37 | NUR ---
PT DISCHARGED TO WAITING IN PRIVATE VEHICLE. PT HAD ALL BELONGINGS AND DISCHARGE PAPERWORK.
--- NOTE | 2019-10-10 15:26 | OP ---
PATIENT NAME: IRAM BEDOYA MEDICAL RECORD: [id number] :46 LOCATION:D.CAT ADMISSION DATE: SURGEON: RAYMUNDO ROSAS MD DATE OF OPERATION: 10/09/2019 PROCEDURE: Left heart catheterization, selective coronary angiography, right femoral artery approach. CATHETERS: A 5-Egyptian sheath, 5/4 left and right Lia, 5/4 pig. The procedure was well tolerated. PTCA stenting. Saphenous vein graft to the right. The procedure was finished. FINDINGS: Left ventriculography in 30-degree GÓMEZ view, mild global hypokinesis, LV function reduced at 40%. CORONARY ANATOMY: LEFT MAIN: Left main is free of disease. LAD: Fills for a short period of time, this is seen via competitive flow. CIRCUMFLEX: Circumflex totally occluded. RIGHT CORONARY ARTERY: Totally occluded. BYPASS GRAFTS: 1. CHADWICK to LAD is widely patent throughout the course without evidence of post-anastomotic stenosis. 2. Saphenous vein graft to the lateral system and circumflex system, widely patent. Saphenous vein graft to the right has a fairly discrete 90% plus stenosis obviously correlating nicely with nuclear study better than 90%. PLAN: Intervention momentarily. DESCRIPTION OF PROCEDURE: A 5-Egyptian sheath was exchanged for a 6-Egyptian sheath. Pre-deployment balloon was a 2.5 x 12 mm [place] balloon. Rest of the lesion was pretreated with IC Cardene. Next, stent deployed was a 3.0 x 15 mm Abilio drug-eluting stent up to 14 atmospheres. Final angiography shows excellent resolution of 90% plus stenosis, no significant residual. CHRISTIANO flow was 3 throughout the procedure. Sheath was closed with ExoSeal device. Heparin and Integrilin were used during the case. TRANSINT:[id number] Voice Confirmation ID: [id number] DOCUMENT ID: [id number] RAYMUNDO ROSAS MD at 1526 CC: [id number] DICTATION DATE: 10/09/19 1005 SENIOR PAYROLL MANAGER: 10/09/19 1308 DEP CLI 10/09/19 [facility] [address] [place] [address]
== END 2019-10-09 14:35 | disposition home or self-care (01) ==
LOC: D.CATH 07:30
PROVIDERS: ATTEND Internal Medicine Interventional Cardiology
DX: I25.10 Atherosclerotic heart disease of native coronary artery without angina pectoris (principal); J44.9 Chronic obstructive pulmonary disease, unspecified; E78.5 Hyperlipidemia, unspecified; Z79.4 Long term (current) use of insulin; I73.9 Peripheral vascular disease, unspecified; R06.00 Dyspnea, unspecified; M79.89 Other specified soft tissue disorders; E11.22 Type 2 diabetes mellitus with diabetic chronic kidney disease; I12.0 Hypertensive chronic kidney disease with stage 5 chronic kidney disease or end stage renal disease; N18.6 End stage renal disease; Z99.2 Dependence on renal dialysis
CPT/HCPCS: 93459; C9604

== ENCOUNTER → 2019-10-24 10:09 | Outpatient (CLI) | payer MEDICARE ==
[2019-10-09 08:35] VITALS: BMI 33.7
== END | disposition home or self-care (01) ==
LOC: D.LAB 10:09
PROVIDERS: ATTEND Internal Medicine Nephrology
DX: Z79.2 Long term (current) use of antibiotics (principal)

== ENCOUNTER → 2019-12-04 15:25 | Outpatient (CLI) | payer MEDICARE ==
[2019-10-09 08:35] VITALS: BMI 33.7
== END | disposition home or self-care (01) ==
LOC: D.US 15:25
PROVIDERS: ATTEND Internal Medicine Cardiovascular Disease
DX: I99.8 Other disorder of circulatory system (principal)

== ENCOUNTER 2019-12-09 14:36 | Inpatient (IN) | payer MEDICARE ==
[~2019-12-09] VITALS: Ht 162.6 cm; Wt 87.1 kg
--- NOTE | ~2019-12-09 | HEMODYNAMI ---
PATIENT:IRAM BEDOYA MEDICAL RECORD: [id number] : 46 LOCATION:[facility] D.2109 ADMISSION DATE: 12/09/19 Generatedon:12/10/201912:02 Patient name: IRAM BEDOYA Patient #: [id number] SSN: [id number] : 1950 Date of study: 12/10/2019 Page: Of Hemodynamic Procedure Report Patient Data Patient Demographics Procedure consent was obtained First Name: IRAM Gender: Female Last Name: AURELIANO : 1950 [facility] Initial: MANSI Age: 69 year(s) Patient #: [id number] Race: SSN: [id number] Additional ID: [id number] Contact details [address]: [address] [place] [address] State: [place] City: [place] Zip code: [address] Past Medical History History of disease Date Diagnosis Comments CAD CHF PVD Chronic lung disease Allergies: No known allergies Admission Admission Data Admission Date: 12/09/2019 Admission Time: 14:36 Arrival Date: 12/10/2019 Arrival Time: 0:00 Admit Source: Other Insurance Payor: Medicare Room #: D.2109 [facility] #: [id number] Height (in.): 67043.02 BSA: 133.22 (m2) Height (cm.): 91644 BMI: 0 (kg/m2) Weight (lbs.): 192.4 Weight (kg.): 87.27 Lab Results Lab Result Date: 12/10/2019 Lab Result Time: 0:00 Biochemistry Name Units Result Min Max BUN mg/dl 62 --(----)-* 7 18 Creatinine mg/dl 9.1 --(----)-* 0.6 1.3 eGFR ml/min 5 *-(----)-- 90 120 NONAFRICAN CBC Name Units Result Min Max Hematocrit % 33 *-(----)-- 42 54 Hemoglobin g/dl 10.6 *-(----)-- 13.5 17.5 Procedure Procedure Types Cath Procedure Diagnostic Procedure Sedation Charges Moderate Sedation up to 30 minutes Peripheral Cath Diagnostic Procedure Customer Service Leader Peripheral Procedures AFRO (Diagnostic) Peripheral vascular Intervention Angioplasty Angioplasty Fem/Pop Angioplasty Iliac Initial Procedure Description Procedure Date Procedure Date: 12/10/2019 Procedure Start Time: 11:20 Procedure End Time: 12:01 Procedure Staff Name Function Heriberto Spencer MD Performing Physician Sima Schmitt RT Monitor Yasmeen Garcia RT Scrub Carson Buitrago RN Nurse Procedure Data Cath Procedure Fluoroscopy Diagnostic fluoroscopy Total fluoroscopy Time: 8.3 time: 8.3 min min Diagnostic fluoroscopy Total fluoroscopy dose: 203 dose: 203 mGy mGy Contrast Material Contrast Material Type Amount (ml) Isovue 370 133 Entry Location Entry Primary Successful Side Size Upsize Upsize Entry Closure Succes sful Closure Location (Fr) 1 (Fr) 2 (Fr) Remarks Device Remarks Femoral Right 5 Fr 6 Fr 6 Fr artery Short Long Femoral Right 6 Fr artery Short Estimated blood loss: 10 ml Diagnostic catheters Device Type Used For End Catheter Placement DIAGNOSTIC UF 5Fr Procedure catheter ([id number]) Procedure Complications No complications Procedure Medications Medication Administration Route Dosage Oxygen etCO2 Nasal cannula 2 l/min Benadryl I.V. 50 mg Lidocaine 2% added to field 20 Heparin Flush Bag added to field 2 bags (1000units/500ml NS) 0.9% NaCl I.V. Versed I.V. 1 mg Fentanyl I.V. 50 mcg Versed I.V. 1 mg Fentanyl I.V. 50 mcg Heparin Bolus I.V. 4000 units Integrilin (Bolus I.V. 7.9 ml 2mg/ml) Plavix P.O. 300 mg Hemodynamics Rest BSA: 133.22 (m2) HGB: 10.6 (g/dl) O2 Consumption: Estimated: 53561.47 (ml/min) O 2 Consumption indexed: Estimated:92.47 (ml/min/m) Heart Rate: 71 (bpm) Snapshots Pre Cath Intra NCS Post Cath Vital Signs Time Heart Resp SPO2 etCO2 NIBP (mmHg) Rhythm Pain Sedation Rate (ipm) (%) (mmHg) Status Level (bpm) 10:55:50 73 22 100 0 No Cuff NSR 0 (11) 10(A) , No pain 11:00:24 71 14 100 0 158/75(136) NSR 0 (11) 10(A) , No pain 11:05:03 72 22 100 0 164/72(123) NSR 0 (11) 10(A) , No pain 11:09:45 69 23 99 0 169/67(122) NSR 0 (11) 10(A) , No pain 11:14:30 68 22 100 0 168/64(127) NSR 0 (11) 10(A) , No pain 11:19:04 64 12 98 23.2 145/60(107) NSR 0 (11) 9(A) , No pain 11:23:29 63 13 98 27.8 132/56(95) NSR 0 (11) 9(A) , No pain 11:28:01 64 27 97 39.1 134/56(103) NSR 0 (11) 9(A) , No pain 11:32:32 65 22 97 34.5 141/58(103) NSR 0 (11) 9(A) , No pain 11:37:04 65 23 98 33 143/57(103) NSR 0 (11) 9(A) , No pain 11:41:34 64 15 97 42.1 135/57(98) NSR 0 (11) 9(A) , No pain 11:46:07 64 16 97 44.3 138/58(110) NSR 0 (11) 10(A) , No pain 11:50:37 64 14 97 45.1 148/61(116) NSR 0 (11) 10(A) , No pain 11:55:12 64 13 98 39.8 161/65(121) NSR 0 (11) 10(A) , No pain 11:59:11 98 33 No Cuff NSR 0 (11) 10(A) , No pain Medications Time Medication Route Dose Verified Delivered Reason Notes Effectiveness by by 11:04:51 Oxygen etCO2 2 Heriberto Byrd used for Nasal l/min [facility] Gregorio Buitrago industrial designer cannula 11:05:00 Benadryl I.V. 50 mg Heriberto Byrd used for [facility] Greg[facility] Buitrago industrial designer 11:05:10 Lidocaine 2% added 20ml Heriberto Louis for local to vial [place] [facility] anesthetic field MD MOON 11:05:15 0.9% NaCl I.V. kvo Heriberto Byrd Per physician pt is a ml/hr [facility] Gregorio Buitrago RN peritoneal dialysis pt. 11:05:15 Heparin Flush added 2 Heriberto Louis used for Bag to bags TjGregorio Spencer procedure (1000units/500ml field MD MOON NS) 11:11:35 Versed I.V. 1 mg Heriberto Grissomie for sedation [facility] Gregorio Buitrago RN, MD 11:11:42 Fentanyl I.V. 50 Heriberto Byrd for sedation mcg [facility] Gregorio Buitrago RN, MD 11:22:09 Versed I.V. 1 mg Heriberto Byrd for sedation St Gregorio Buitrgao RN, MD 11:22:14 Fentanyl I.V. 50 Heriberto Byrd for sedation mcg [facility] Gregorio Buitrago RN, MD 11:30:56 Heparin Bolus I.V. 4000 Heriberto Byrd for verif ied units [facility] Gregorio Buitrago RN anticoagulation with dr MD coffman 11:41:32 Integrilin I.V. 7.9 Heriberto Byrd for waste d 2.1 (Bolus 2mg/ml) ml [facility] Gregorio Buitrago RN antiplatelet ml of vial MD therapy 11:53:43 Plavix P.O. 300 Heriberto Byrd for mg [facility] Gregorio Buitrago RN antiplatelet therapy Procedure Log Time Note 10:27:43 Informed consent obtained and on chart 10:27:47 Diagnostic Cath Status : Elective 10:28:16 Procedure Status Peripheral. 10:28:19 Time tracking: Regular hours (M-F 7:00 - 5:00) 10:28:23 Plan of Care:Hemodynamics will remain stable., Cardiac rhythm will remain stable., Comfort level will be maintained., Respiratory function will remain adequate., Patient/ family verbilizes understanding of procedure., Procedure tolerated without complication., Recovers from procedure without complications.. 10:30:18 Carson Buitrago RN sent for patient. Start room use. 10:41:20 Lab Result : Hemoglobin 10.6 g/dl 10:41:20 Lab Result : eGFR NONAFRICAN 5 ml/min 10:41:20 Lab Result : BUN 62 mg/dl 10:41:20 Lab Result : Creatinine 9.1 mg/dl 10:41:20 Lab Result : Hematocrit 33 % 10:41:25 Arrival Date: 12/10/2019 12:00:00 AM 10:41:26 Admit Source: Other 10:41:29 Patient Height : 81874.02 inches 10:41:34 Patient Weight : 192.4 lbs 10:41:39 Insurance Payor : Medicare 10:50:57 H&P Date Dictated: 12/09/2019 Within 30 days and on chart.. 10:50:58 Pre-procedure instructions explained to patient. 10:50:58 Pre-op teaching completed and patient verbalized understanding. 10:51:01 Family in waiting room. 10:51:27 Patient NPO since Breakfast. 10:51:37 Patient allergic to No known allergies 10:51:50 Patient received from Med II to CCL 1 Alert and oriented. Tansferred to table in Supine position. 10:51:57 Warm blankets applied, and nicole hugger turned on for patient comfort. 10:51:57 Correct patient and procedure confirmed by team. 10:51:58 ECG and BP/O2 sat monitors applied to patient. 10:52:05 Lab results completed and on chart. 10:52:10 Stress Test: no; normal ? 10:52:13 Alarms reviewed by R. N. 10:52:13 Sharps counted by scrub and verified by R.N. 10:52:17 Bilateral groins area was prepped with chlora-prep and draped in sterile fashion 10:52:43 Pre procedure: right dorsailis pedis pulse 2+ Normal; easily identifiable; not easily obliterated 10:52:49 Patient pain scale 0/10 ?. 10:53:45 Full Disclosure recording started 10:54:00 IV patent on arrival in left antecubital with 0.9% NaCl at KVO. 10:54:59 Vital chart was started 11:01:56 Baseline sample Acquired. 11:01:59 Rhythm: sinus rhythm 11:02:05 Is the patient allergic to Iodine/contrast media? No. 11:02:12 Was the patient premedicated? No 11:02:15 Is patient on blood thinner?Yes 11:02:18 ACC The patient was administered the following blood thiners within the last 24 hours: ACCPlavix 11:02:33 last does of plavix 12/08/2019. 11:02:39 Patient diabetic? Yes. 11:02:41 If diabetic: On Metformin? No 11:02:43 Patient not . Patient is over age 55. 11:02:44 ----Pre-sedation anethsthesia assessment.---- 11:02:52 Previous problem with sedation/anesthesia? No ? 11:02:53 Snore? Yes 11:02:54 Sleep apnea? No 11:02:55 Deviated septum? No 11:02:56 Opens mouth fully? Yes 11:02:57 Sticks out tongue? Yes 11:03:01 Airway obstruction? Yes copd 11:03:04 Dentures? No ? 11:04:51 Oxygen 2 l/min etCO2 Nasal cannula was administered by Carson Buitrago RN; used for procedure; Verbal order read back and verified. 11:04:54 Use device set Femoral Dx 11:04:55 ACIST Syringe (42597) opened to sterile field. 11:04:56 Bag Decanter (2002S) opened to sterile field. 11:04:56 Medline Cath Pack ([id number]) opened to sterile field. 11:04:57 ACIST Hand Control (87528) opened to sterile field. 11:04:58 ACIST Manifold (32210) opened to sterile field. 11:05:00 Benadryl 50 mg I.V. was administered by Carson Buitrago RN; used for procedure; Verbal order read back and verified. 11:05:08 SHEATH 5FR [place] (USS542) opened to sterile field. 11:05:09 EMERALD Guide Wire (619-530) opened to sterile field. 11:05:10 Lidocaine 2% 20ml vial added to field was administered by Heriberto Spencer MD; for local anesthetic; Verbal order read back and verified. 11:05:15 0.9% NaCl kvo ml/hr I.V. was administered by Carson Buitrago RN; Per physician; pt is a peritoneal dialysis pt. Verbal order read back and verified. 11:05:15 Heparin Flush Bag (1000units/500ml NS) 2 bags added to field was administered by Heriberto Spencer MD; used for procedure; Verbal order read back and verified. 11:06:48 Pt has non healing wounds to left ankle, heel and toes. Pt states she noticed them about one month ago. 11:09:16 --------ALL STOP TIME OUT------ 11:09:17 Final Timeout: patient, procedure, and site verified with staff and physician. All members of the team are in agreement. 11:09:20 Bilateral groins site verified by team. 11:09:24 Fire Safety Assessment: A--An alcohol-based skin anteseptic being used preoperatively., C--Open oxygen or nitrous oxide is being used., D--An ESU, laser, or fiber-optic light is being used. 11:09:29 Physical assessment completed. ASA score P 2 - A patient with mild systemic disease as per Heriberto Spencer MD. 11:09:32 5) <15 or on dialysis Very severe, or end stage kidney failure. 11:09:36 Maximum allowable contrast dose (3.7 X eGFR X 0.75)14 ml. 11:09:40 Sedation plan: IV Moderate Sedation Medication:Versed, Fentanyl 11:11:35 Versed 1 mg I.V. was administered by Carson Buitrago RN; for sedation; Verbal order read back and verified. 11:11:42 Fentanyl 50 mcg I.V. was administered by Carson Buitrago RN; for sedation; Verbal order read back and verified. 11:18:29 IV Extension Set opened to sterile field. 11:19:53 Procedure started. 11:20:43 Local anesthetic to right femoral artery with Lidocaine 2% by Heriberto Spencer MD.INITIAL ACCESS ONLY 11:21:41 A 5 Fr sheath was inserted into the Right Femoral artery 11:22:08 A DIAGNOSTIC UF 5Fr catheter ([id number]) was advanced over the wire and used for Procedure. 11:22:09 Versed 1 mg I.V. was administered by Carson Buitrago RN; for sedation; Verbal order read back and verified. 11:22:14 Fentanyl 50 mcg I.V. was administered by Carson Buitrago RN; for sedation; Verbal order read back and verified. 11:22:52 Left leg runoff performed. 11:23:50 Injector settings: Ml/sec: 10, Volume: 20, 11:23:56 Right leg runoff performed. 11:24:00 Injector settings: Ml/sec: 10, Volume: 20, 11:24:38 Left leg runoff performed. 11:24:58 Injector settings: Ml/sec: 10, Volume: 20, 11:25:00 Proceeding to intervention. 11:28:10 St Kofi 6Fr sheath opened to sterile field. 11:28:11 Catheter removed. 11:28:13 Sheath upsized to a 6 Fr Short. 11:28:17 GLIDE WIRE ANGLE 260cm ([id number]) opened to sterile field. 11:29:13 4 Fr UF guide catheter was inserted over the wire 11::21 Catheter removed. 11::44 Sheath upsized to a 6 Fr Long. 11:30:39 INFLATOR Merit Jodi (UH9046) opened to sterile field. 11:30:56 Heparin Bolus 4000 units I.V. was administered by Carson Buitrago RN; for anticoagulation; verified with dr coffman Verbal order read back and verified. 11:33:01 GLIDE WIRE ADVANTAGE 260cm (RA5274) opened to sterile field. 11:33:30 BMW 300cm [place] 2 J wire ([id number]) opened to sterile field. 11:33:31 BMW 300 wire advanced. 11:38:15 Inflate balloon Inflation number: 1 A EMERGE OTW 3.0 x 30 balloon ([id number]) was prepped and advanced across the Mid Popliteal, Left , then inflated to 10 MAGO for 0:00 (min:sec) . 11:38:48 Inflation number: 2 The EMERGE OTW 3.0 x 30 balloon ([id number]) was reinflated across the Mid Popliteal, Left , to 10 MAGO for 0:00 (min:sec) . 11:39:33 Inflation number: 3 The EMERGE OTW 3.0 x 30 balloon ([id number]) was reinflated across the Mid Popliteal, Left , to 10 MAGO for 0:00 (min:sec) . 11:40:10 Inflation number: 4 The EMERGE OTW 3.0 x 30 balloon ([id number]) was reinflated across the Mid Popliteal, Left , to 10 MAGO for 0:00 (min:sec) . 11:40:51 Inflation number: 1 The EMERGE OTW 3.0 x 30 balloon ([id number]) was reinflated across the Distal Superficial Femoral, Left , to 10 MAGO for 0:00 (min:sec) . 11:41:26 Inflation number: 5 The EMERGE OTW 3.0 x 30 balloon ([id number]) was reinflated across the Mid Popliteal, Left , to 10 MAGO for 0:00 (min:sec) . 11:41:32 Integrilin (Bolus 2mg/ml) 7.9 ml I.V. was administered by Carson Buitrago RN; for antiplatelet therapy; wasted 2.1 ml of vial Verbal order read back and verified. 11:42:08 Inflation number: 2 The EMERGE OTW 3.0 x 30 balloon ([id number]) was reinflated across the Distal Superficial Femoral, Left , to 10 MAGO for 0:28 (min:sec) . 11:44:26 Balloon removed over the wire. 11:48:44 Inflate balloon Inflation number: 1 A POWERFLEX PRO 5.0 x 20 x 135cm balloon ([id number]) was prepped and advanced across the Proximal Superficial Femoral, Left , then inflated to 8 MAGO for 0:00 (min:sec) . 11:49:44 Stent catheter was removed intact over wire. 11:49:47 Wire removed. 11:49:47 Guide catheter removed. 11:50:12 A 6 Fr Short sheath was inserted into the Right Femoral artery 11:50:31 Fluoroscopy time 08.30 minutes. 11:50:33 Procedure ended.(Physican Out) 11:51:08 EXOSEAL 6Fr (EX600) opened to sterile field. 11:53:03 Flurop Dose total: 203 11:53:03 Fluoroscopy dose: 203 mGy 11:53:39 ACT drawn and resulted at 263 seconds. (normal therapeutic range 180-240 seconds). 11:53:43 Plavix 300 mg P.O. was administered by Carson Buitrago RN; for antiplatelet therapy; Verbal order read back and verified. 11:53:44 Dose Area Product 60320 mGy/cm. 11:53:55 Contrast amount:Isovue 370 133ml. 11:53:58 Maximum allowable dose exceeded? No. 11:53:59 Sharps counted by scrub and verified by R.N. 11:54:07 Post-op/insertion site Right Femoral artery dressed using a 4 x 4 and Tegaderm. 11:54:12 Post right femoral artery:stable, soft, clean and dry 11:54:14 Post Procedure Pulses reassessed and unchanged 11:54:21 Post procedure: right dorsailis pedis pulse 1+ Palpable, but thready & weak; easily obliterated. 11:54:25 Post-procedure physical assessment completed. ASA score P 2 - A patient with mild systemic disease as per Heriberto Spencer MD. 11:54:28 Post procedure rhythm: unchanged. 11:54:31 Estimated blood loss: 10 ml 11:54:32 Post procedure instruction explained to patient.Patient verbalizes understanding. 11:54:33 Patient needs reinforcement of post procedure teaching. 11:58:25 Procedure type changed to Cath procedure, Diagnostic procedure, Sedation Charges, Moderate Sedation up to 30 minutes, Peripheral Cath Diagnostic Procedure, Customer Service Leader Peripheral Procedures, AFRO (Diagnostic), Peripheral vascular Intervention, Angioplasty, Angioplasty Fem/Pop, Angioplasty Iliac Initial 12:00:59 Procedure and supply charges have been captured, reviewed, submitted and are correct. 12:01:02 Procedure Complication : No complications 12:01:05 Vital chart was stopped 12:01:12 AFRO Findings: PVD: COMMUNITY OUTREACH MANAGER performed (see procedure notes) 12:01:15 Operative report dictated upon procedure completion. 12:01:15 See physician's report for complete and final results. 12:01:20 Report given to Med II. 12:01:24 Patient transfered to Med II with Bed. 12:01:26 Procedure ended. 12:01:26 Full Disclosure recording stopped 12:01:48 End room use (Document Last) 12:02:00 End room use (Document Last) Intervention Summary Intervention Notes Time ActionType Lesion and Equipment Action# Pressure Duration Attributes Used 11:38:15 Inflate Mid EMERGE OTW 1 10 00:00 balloon Popliteal, 3.0 x 30 Left balloon ([id number]) 11:38:48 Reinflate Mid EMERGE OTW 2 10 00:00 balloon Popliteal, 3.0 x 30 Left balloon ([id number]) 11:39:33 Reinflate Mid EMERGE OTW 3 10 00:00 balloon Popliteal, 3.0 x 30 Left balloon ([id number]) 11:40:10 Reinflate Mid EMERGE OTW 4 10 00:00 balloon Popliteal, 3.0 x 30 Left balloon ([id number]) 11:40:51 Reinflate Distal EMERGE OTW 1 10 00:00 balloon Superficial 3.0 x 30 Femoral, balloon Left ([id number]) 11:41:26 Reinflate Mid EMERGE OTW 5 10 00:00 balloon Popliteal, 3.0 x 30 Left balloon ([id number]) 11:42:08 Reinflate Distal EMERGE OTW 2 10 00:28 balloon Superficial 3.0 x 30 Femoral, balloon Left ([id number]) 11:48:44 Inflate Proximal POWERFLEX 1 8 00:00 balloon Superficial PRO 5.0 x 20 Femoral, x 135cm Left balloon ([id number]) Device Usage Item Name Manufacture Quantity Catalog Number Hospital Part Current Min imal Lot# / Charge Number Stock Stock Serial# Code ACIST Acist 1 65834 417384 524754 524481 20 Syringe Medical (60201) Systems Inc Bag Decanter Microtek 1 2001S 528982 48595 384503 5 () Medical Inc. Medline Cath Medline 1 [id number] 943840 08806 507729 5 Pack ([id number]) ACIST Hand Acist 1 12009 808991 489279 088918 5 Control Medical (97978) Systems Inc ACIST Acist 1 18828 003507 032420 022888 5 Manifold Medical (16239) Systems Inc SHEATH 5FR Terumo 1 [id number] 472643 423370 375327 5 [place] (HAZ289) EMERALD Cardinal 1 502-455 331064 249023 225601 5 Guide Wire Health (502-455) IV Extension Hospira 1 69466-75 047519 76023 778271 5 Set DIAGNOSTIC Cardinal 1 [id number] 578091 193202 825009 10 UF 5Fr Health catheter (922372J4) St Kofi 6Fr St Kofi 1 512187 926989 567548 5 sheath GLIDE WIRE Terumo 1 TC1328 110074 828121 892458 5 ANGLE 260cm (ET2663) INFLATOR Merit 1 MN7421 169799 406399 629085 15 [facility] Medical BasixCompak (LH3068) BMW 300cm Cassidy 1 [id number] 859319 131181 336543 5 [place] 2 Vascular J wire (7280789W) GLIDE WIRE Terumo 1 XA8893 097752 958651 5 ADVANTAGE 260cm (LM2831) EMERGE OTW [place] 1 [id number] 081509 408859 465913 5 [id number] 3.0 x 30 Scientific balloon ([id number]) POWERFLEX Cardinal 1 [id number] 028250 526620 558910 5 PRO 5.0 x 20 Health x 135cm balloon (4688444I) EXOSEAL 6Fr Cardinal 1 EX600 539018 615302 758711 10 (EX600) Health Signature Audit [place] Stage Time Signature Unsigned Intra-Procedure 12/10/2019 Sima Schmitt 12:02:00 PM RT(R) Intra-Procedure 12/10/2019 Carson Buitrago RN 12:02:13 PM Intra-Procedure 12/10/2019 Heriberto Fay 12:02:26 PM Gregorio [place]ON [place] [id number] [place] [id number]
[2019-12-09] MEDS ORDERED: TIMOPTIC 0.5 % O5 ML RIGHT EYE (16:21)
[2019-12-09] MEDS ORDERED: ALPHAGAN 0.2%5 ML RIGHT EYE (16:21)
[2019-12-09] MEDS ORDERED: ROCALTROL0.25 MCG PO (16:22)
[2019-12-09 16:25] VITALS: BP 163/95; BMI 33.0
--- NOTE | 2019-12-09 16:42 | NUR ---
RECEIVED PT FROM ADMISSIONS. PT IS AAO AND UP AD KARISSA. RR EVEN AND UNLABORED ON RA. VSS AND WNL. QUICKSTART, HISTORY, MED REQ, AND ASSESSMENT COMPLETED. FALL PRECAUTIONS IN PLACE. DOPPLER PERFORMED TO BILATERAL PEDAL PULSES. LEFT DORSAL PEDAL PULSE WEAK, THREADY AND POSTERIOR TIBIAL PULSE IS STRONG. RIGHT DORSAL PEDAL PULSE IS ALSO STRONG AND EVEN. PD CATH INTACT TO LEFT CHEST. R.FOR PIV STARTED TO THE RIGHT FOREARM 22GA X1 ATTEMPT. PT TOLERATED WELL. PT DENIES ANY NEEDS AT THIS TIME. NO S/S OF DISTRESS NOTED. WILL CTM.
[2019-12-09 17:10] VITALS: BP 163/95
[2019-12-09 20:28] LABS: BASOPHILS 0.3 % (0-2); EOSINOPHILS 1.8 % (0-7); HEMOGLOBIN 10.6 g/dL (12-16); MCHC 32.1 g/dL (31.0-37.0); MCV 105.8 fL (80.0-100.0); MEAN PLATELET VOLUME 10.4 fL (7.4-10.4); NEUTROPHILS 71.9 % (40-80); PLATELET COUNT 286 10x3/uL (130-400); RBC 3.12 10x6/uL (4.00-5.40); RDW 15.1 % (11.5-14.5); WBC 17.2 10x3/uL (4.8-10.8)
[2019-12-09 20:50] LABS: ALBUMIN 2.5 g/dL (3.4-5.0); ANION GAP 15.8 mmol/L (8-16); BILIRUBIN - DIRECT 0.08 mg/dL (0.00-0.30); BILIRUBIN - INDIRECT 0.19 mg/dL (0.00-1.00); BILIRUBIN - TOTAL 0.27 mg/dL (0.2-1.3); CALCIUM 8.7 mg/dL (8.5-10.1); CARBON DIOXIDE 28.4 mmol/L (21.0-32.0); CHOL - HDL RATIO 4.8 ratio (2.3-4.1); CREATININE - SERUM 9.1 mg/dL (0.6-1.3); LDL-HDL RATIO 2.4 ratio (1.5-3.5); POTASSIUM - SERUM 4.2 mmol/L (3.5-5.1); PROTEIN - SERUM 7.7 g/dL (6.4-8.2)
[2019-12-09 22:36] LABS: ERYTHROCYTE SEDIMENTATION RATE 127 mm/hr (0-30)
[2019-12-09 22:45] VITALS: BP 219/84
[2019-12-10 02:12] VITALS: BP 171/63
[2019-12-10 05:52] VITALS: BP 126/82
[2019-12-10 07:00] VITALS: BP 182/64
--- NOTE | 2019-12-10 07:20 | NUR ---
RECIEVE REPORT. ALERT AND ORIENTED X4. SITTING UP ON SIDE OF BED. SPOUSE AT BEDSIDE. WAITING FOR PROCEDURE. NO SIGNS OF DISTRESS. CONTINUE PLAN OF CARE AND SAFETY PRECAUTIONS.
[2019-12-10 10:34] VITALS: Ht 162.6 cm; Wt 87.1 kg
--- NOTE | 2019-12-10 12:15 | NUR ---
ARRIVE BACK TO ROOM VIA BED FROM METAL ROOM DENTAL TECHNICIAN. RT GROIN DRESSING C/D/I. PULSE +1 BILATERALLY. BP-152/50, HR-63, O2-98% RA. SPOUSE AT BEDSIDE. CONTINUE PLAN OF CARE AND SAFETY PRECAUTIONS.
[2019-12-10 15:00] VITALS: BP 152/75
--- NOTE | 2019-12-10 16:16 | NUR ---
ALERT AND ORIENTED X4. SITTING UP IN BED. RT GROIN DRESSING CLEAN DRY INTACT. FREE FROM BLEEDING. FREE FROM HEMATOMA. DISCHARGE INSTRUCTIONS GIVEN VERBALLY AND WRITTEN. DISCHARGE PAPERS SIGNED ON CHART. DC RT FA IV TIP INTACT. ESCORT TO RIDE VIA WHEELCHAIR. REMAINS FREE FROM INJURY.
--- NOTE | 2019-12-11 16:55 | OP ---
PATIENT NAME: IRAM BEDOYA MEDICAL RECORD: [id number] :46 LOCATION:D.M2 D.2109 ADMISSION DATE:12/09/19 SURGEON: RAYMUNDO ROSAS MD DATE OF OPERATION: 12/10/2019 PROCEDURE: AFRO. CATHETERS USED: A 6-Sami sheath, as well as a long 6-Sami sheath. A UF catheter, Glidewire as well as coronary BMW wire. Procedure well tolerated. The patient returned to the shah. Sheath removed. ExoSeal device placed. Aortofemoral runoff: The catheter was placed at the level of the renal arteries, abdominal aorta shows no evidence of aneurysm or dissection. Minimal atherosclerotic disease via right system. Catheter was then drawn proximally to the right iliac system. The right common internal and external iliac system showed mild wall disease but no flow obstructive stenosis. The right superficial femoral artery shows a discrete 80% stenosis at its distal one third with good 2-vessel runoff distally. Left system: Left iliac system, both common internal and external show mild wall disease. No flow obstructive stenosis. The left superficial femoral has an 80% to 90% stenosis discrete eccentric distally. At the distal SFA, junction of the popliteal shows sequential 90% stenosis. There is previously placed stent that has about 80% restenosis. It does appear to be thrombus burden at the area of the stenosis proximal to the stent. We placed a coronary BMW wire down the superficial femoral into the distal popliteal and using a 3.5 coronary balloon went up and down the popliteal occluded area of previous stenting, approximately used a 5-0, 20 mm balloon in the area of the superficial femoral. Final angiography shows a marked improvement in distal flow with no more than 10% residual of the popliteal or superficial femoral. There is marked engorgement of the collaterals to the distal vasculature as well. FINAL IMPRESSION: Successful SOFTWARE BUSINESS ANALYST of the superficial femoral and popliteal with improvement in collateral flow. 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 Would continue Plavix and peripheral vascular disease dose of Xarelto for 1 month, can stop the Plavix at this time and continue Xarelto indefinitely. TRANSINT:[id number] Voice Confirmation ID: [id number] DOCUMENT ID: [id number] RAYMUNDO ROSAS MD at 1655 CC: [id number] DICTATION DATE: 12/10/19 1224 MECHANICAL ENGINEERING LECTURER: 12/10/196 DIS IN 12/10/19 [facility] [address] [place] [address]
== END 2019-12-10 16:50 | disposition home or self-care (01) | DRG 299 ==
LOC: D.M2 14:36
PROVIDERS: ADMIT Internal Medicine Nephrology; ATTEND Internal Medicine Nephrology
DX: E11.51 Type 2 diabetes mellitus with diabetic peripheral angiopathy without gangrene (principal); N18.6 End stage renal disease; I12.0 Hypertensive chronic kidney disease with stage 5 chronic kidney disease or end stage renal disease; I70.209 Unspecified atherosclerosis of native arteries of extremities, unspecified extremity; E11.22 Type 2 diabetes mellitus with diabetic chronic kidney disease; Z99.2 Dependence on renal dialysis; D63.1 Anemia in chronic kidney disease; E11.40 Type 2 diabetes mellitus with diabetic neuropathy, unspecified

== ENCOUNTER 2019-12-15 15:51 | Emergency (ER) | payer MEDICARE ==
[~2019-12-15] VITALS: Ht 162.6 cm; Wt 87.3 kg
[~2019-12-15 15:51] MED LIST changes: +ALPHAGAN 0.2%5 ML RIGHT EYE; +ROCALTROL0.25 MCG PO; +TIMOPTIC 0.5 % O5 ML RIGHT EYE
[2019-12-15 16:11] VITALS: BP 96/44; Ht 162.6 cm; Wt 87.3 kg
== END 2019-12-15 18:58 | disposition left against medical advice (07) ==
LOC: D.ER 15:51
DX: K56.41 Fecal impaction (principal); Z53.21 Procedure and treatment not carried out due to patient leaving prior to being seen by health care provider

== ENCOUNTER 2019-12-16 03:18 | Inpatient (IN) | payer MEDICARE ==
[2019-12-16] VITALS (13 sets, daily range): BP systolic 88–165; BP diastolic 32–81; BMI 33.9
[~2019-12-16] VITALS: Ht 162.6 cm; Wt 89.4 kg
[2019-12-16 03:42] LABS: HEMATOCRIT 32.8 % (36.0-48.0); HEMOGLOBIN 10.5 g/dL (12-16); MCH 34.1 pg (26.0-34.0); MCV 106.5 fL (80.0-100.0); MEAN PLATELET VOLUME 11.2 fL (7.4-10.4); PLATELET COUNT 279 10x3/uL (130-400); RBC 3.08 10x6/uL (4.00-5.40); RDW 15.8 % (11.5-14.5); WBC 36.9 10x3/uL (4.8-10.8)
[2019-12-16 03:56] LABS: ANION GAP 13.8 mmol/L (8-16); BILIRUBIN - TOTAL 0.4 mg/dL (0.2-1.3); CALCIUM 9.1 mg/dL (8.5-10.1); CARBON DIOXIDE 28.9 mmol/L (21.0-32.0); CREATININE - SERUM 7.2 mg/dL (0.6-1.3); POTASSIUM - SERUM 3.7 mmol/L (3.5-5.1); PROTEIN - SERUM 7.4 g/dL (6.4-8.2)
[2019-12-16 04:07] LABS: LYMPHOCYTES 3 % (15-50); MONOCYTES 2 % (2-11); NEUTROPHILS 74 % (40-80); PLATELET ESTIMATE NORMAL
--- NOTE | 2019-12-16 04:09 | NUR ---
PT STATES MEANT TO TELL THE DOCTOR THAT SHE FELL YESTERDAY AND HAS PAIN TO LEFT POSTERIOR SHOULDER. XRAYS ORDERED.
--- NOTE | 2019-12-16 04:45 | NUR ---
IN AND OUT CATH PER STERILE TECHNIQUE FOR UA OBTAINED. TOLERATED WELL.
--- NOTE | 2019-12-16 05:28 | NUR ---
peritoneal fluid collected per sterile technique with new betadine swab cap applied.
[2019-12-16 06:04] LABS: PROTEIN - BODY FLUID 0.1 G/DL
[2019-12-16 06:42] LABS: BILIRUBIN NEGATIVE (NEGATIVE); EPITHELIAL CELLS 0-5 /hpf (0-5); KETONE NEGATIVE (NEGATIVE); NITRITE NEGATIVE (NEGATIVE); UROBILINOGEN NORMAL mg/dL (< 2); WHITE CELLS - URINE 0-5 HPF (0-4)
[2019-12-16 06:43] LABS: AMORPHOUS SEDIMENT <1+ LPF (NONE SEEN); BACTERIA FEW HPF (NONE SEEN)
--- NOTE | 2019-12-16 06:45 | NUR ---
COVID SWAB OBTAINED AND SENT TO LAB.
--- NOTE | 2019-12-16 10:50 | NUR ---
500 GR PERITONEAL FLUID OUT PRIOR TO ADMINISTRATION OF PD FLUID. NEW BAG OF PD FLUID WEIGHED 2500 GR.
--- NOTE | 2019-12-16 11:11 | NUR ---
FSBS 328.
--- NOTE | 2019-12-16 13:11 | NUR ---
PAGED AND SPOKE WITH DR VALENTIN D/T PT C/O PAIN. STATED HE DID NOT WANT TO GIVE HER ANY OPIATES D/T NO BM X1 WEEK. TO ORDER REC'D FOR ENEMA.
--- NOTE | 2019-12-16 13:35 | NUR ---
ENEMA ADMIN. PT TOLERATED WELL.
--- NOTE | 2019-12-16 15:51 | NUR ---
PT FLAILING AROUND IN THE BED STATING "I AM GOING TO , I AM NOT GOING TO MAKE IT, I CANNOT BREATHE". POX 98-100% ON 3L/NC. PT DEMANDED RELEASE OF PD. WEIGHT 1800GR. PT CALM AND RELAXED AT THIS TIME.
--- NOTE | 2019-12-16 17:17 | NUR ---
REPORT CALLED TO EFREN RESENDIZ.
--- NOTE | 2019-12-16 17:48 | NUR ---
RECEIVED PT FROM ER. PT IS RESTLESS AND AWAKE. FAMILY AT BEDSIDE. CALL LIGHT W/I REACH. VSS AND WNL. RR LABORED ON EXERTION ON 3L 02. PIV SALINE LOCKED. QUICKSTART, HISTORY, ASSESSMENT, AND MED REQ COMPLETE. WILL CTM.
--- NOTE | 2019-12-16 21:39 | NUR ---
ON INITIAL ASSESSMENT PT WAS A/O X4. HOB ELEVATED. ABD EXTREMELY DISTENDED. PD CATH TO UPPER LEFT ABDOMEN. SPOUSE HAD COME OUT DURING REPORT AND STATAED SHE WANTED A PAIN PILL. EXPLAINED THE SOONEST SHE COULD HAVE ANYTHING WOULD BE 2000. VERBALLY ACKNOWLEDGED. THEN SPOUSE CALLED AND SAID HE WAS JUST TALKING TO HER AND SHE SAID SHE WAS HAVING DIFFICULTY BREATHING AND PROBABLY FORGOT TO HANG HER PHONE UP. ASSURED HIM I WOULD GO CHECK ON HER AND HANG HER PHONE UP. SPOUSE ACKNOWLGED AND THIS NURSE SYLVIA RIGHT INTO THE ROOM. FOUND PT SIDEWAYS IN THE BED WITH NO HR OR RESPIRATIONS. CALLED A ROBIN DEJESUS AT THAT TIME.
[2019-12-16 21:56] LABS: BASOPHILS 0.1 % (0-2); EOSINOPHILS 0.1 % (0-7); HEMATOCRIT 30.3 % (36.0-48.0); HEMOGLOBIN 9.4 g/dL (12-16); IMMATURE GRANULOCYTES 1.5 % (0-5); MCH 33.5 pg (26.0-34.0); MCV 107.8 fL (80.0-100.0); MEAN PLATELET VOLUME 11.6 fL (7.4-10.4); MONOCYTES 5.5 % (2-11); NEUTROPHILS 79.8 % (40-80); PLATELET COUNT 279 10x3/uL (130-400); RBC 2.81 10x6/uL (4.00-5.40); RDW 15.7 % (11.5-14.5); WBC 30.7 10x3/uL (4.8-10.8)
[2019-12-16 22:10] LABS: ANION GAP 20.2 mmol/L (8-16); CALCIUM 9.3 mg/dL (8.5-10.1); CARBON DIOXIDE 23.9 mmol/L (21.0-32.0); CREATININE - SERUM 7.3 mg/dL (0.6-1.3); POTASSIUM - SERUM 4.1 mmol/L (3.5-5.1)
[2019-12-17] VITALS (22 sets, daily range): BP systolic 98–135; BP diastolic 27–58; Ht 162.6 cm; Wt 89.4 kg
--- NOTE | 2019-12-17 00:22 | NUR ---
SPOKE WITH THE PATIENT'S OVER THE PHONE, AND WOULD LIKE TO REMAIN A FULL CODE AT THIS TIME, WITH POSSIBILITY TO CHANGE TO DNR AFTER DAUGTHERS ARRIVE IN THE AM.
[2019-12-17 01:35] LABS: MACROPHAGES BF 13 %; NEUT - BF 76 %
--- NOTE | 2019-12-17 06:36 | NUR ---
FAMILY HERE AT THIS TIME, SPOKEN WITH ABOUT PT CONDITION.
[2019-12-17 08:32] LABS: BASOPHILS 0.1 % (0-2); EOSINOPHILS 0 % (0-7); IMMATURE GRANULOCYTES 1.7 % (0-5); LYMPHOCYTES 4.6 % (15-50); MCH 35.6 pg (26.0-34.0); MCHC 34.2 g/dL (31.0-37.0); MONOCYTES 4.4 % (2-11); NEUTROPHILS 89.2 % (40-80); RDW 15.9 % (11.5-14.5)
[2019-12-17 08:33] LABS: HEMATOCRIT 56.5 % (36.0-48.0); HEMOGLOBIN 19.3 g/dL (12-16); MCV 104.2 fL (80.0-100.0); PLATELET COUNT 128 10x3/uL (130-400); RBC 5.42 10x6/uL (4.00-5.40); WBC 9.6 10x3/uL (4.8-10.8)
[2019-12-17 08:50] LABS: ALKALINE PHOSPHATASE 115 U/L (30-120); BILIRUBIN - DIRECT 0.16 mg/dL (0.00-0.30); BILIRUBIN - INDIRECT 0.19 mg/dL (0.00-1.00); BILIRUBIN - TOTAL 0.35 mg/dL (0.2-1.3); CALCIUM 9.2 mg/dL (8.5-10.1); CARBON DIOXIDE 25.1 mmol/L (21.0-32.0); CHLORIDE - SERUM 90 mmol/L (98-107); CREATININE - SERUM 7.2 mg/dL (0.6-1.3); SODIUM 129 mmol/L (136-145); UREA NITROGEN 62 mg/dL (7-18); eGFR NON AFRICAN AMERICAN 6 mL/min (90-120)
[2019-12-17 08:54] LABS: ALBUMIN 1.4 g/dL (3.4-5.0); ALT (SGPT) 24 U/L (10-68); CALC OSMOLALITY 278 mosm/kg (275-300); CREATINE KINASE 1194 UL (21-215); GLUCOSE 136 mg/dL (74-106)
[2019-12-17 08:55] LABS: TROPONIN-I 0.843 ng/mL (0.000-0.060)
[2019-12-17 08:56] LABS: CKMB 15.4 U/L (0.0-3.6)
--- NOTE | 2019-12-17 09:45 | NUR ---
FAMILY DECISION MADE TO EXTUBATE TO COMFORT CARE
--- NOTE | 2019-12-17 10:07 | NUR ---
P TO DR SENIOR AND BARBIE, BOTH GAVE NEW ORDER FOR EXTUBATION TO COMFORT CARE, SPOUSE KIERSTEN BEDOYA RECEIVED PATIENTS PERSONAL CELL PHONE
--- NOTE | 2019-12-17 10:20 | NUR ---
PRESSORS AND SEDATION DC'D, MORPHINE 10MG IVP GIVEN PER ORDER, RT NOTIFIED OF ETUBATION FOR COMFORT,
--- NOTE | 2019-12-17 10:55 | NUR ---
EXTUBATED BY RT, 2L NC INITIATED
--- NOTE | 2019-12-17 12:02 | NUR ---
CALLEDL TO ROOM, SHOWING ASYSTOLE ON MONITOR, NO RESPIRATIONS PRESENT, FAMILY AT BEDSIDE, DEFERRED PASTORAL CARE, NO NEEDS AT THIS TIME, PAGED DR VALENTIN FOR PRONOUNCEMENT [address] WADE OFFICE TO HAVE HIM REPAGED 1240 PC TO RADHA BOTELLO RULED OUT FOR SEVER PERITONITIS [address] WADE OFFICE, HAD HIM REPAGED 1310 PC TO BACK TO DR WADE OFFICE, EDGE ROLLER STATED THAT HE WAS ON HIS WAY
--- NOTE | 2019-12-17 16:38 | MORECARE ---
CASE MANAGEMENT DISCHARGE SUMMARY PATIENT: IRAM BEDOYA SH[place] UNIT: [id number] ADM DATE: 12/16/19 AGE: 69 : 48 SEX: F ROOM/BED: D.2306 AUTHOR: AUGUSTO SAGE PHYSICIAN: REFERRING PHYSICIAN: CATY SENIOR MD DATE OF SERVICE: 12/17/19 Discharge Plan Patient Name[facility] IR[facility] [facility] 1950 Planned Disposition: Anticipated Discharge Date: 12/17/19 Discharge Date: 12/17/2019 Expected LOS: 1 Initial Reviewer: [email or web address] Initial Review Date: 12/16/2019 Generated: 12/17/19 5:37 pm Comments DCP- Discharge Planning Updated by [email or web address]: Narda Charles on 12/17/19 2:[address] LATE ENTRY 0930 CM SPOKE WITH CHARGE NURSE THIS AM. HE STATED THE PATIENT WAS PRESENTLY A DNR. THEY WERE PLANNING A TERMINAL EXTUBATION THIS AM. CM VISITED WITH THE PRIMARY NURSE. PATIENT HAD BEEN EXTUBATED AND HER VITAL SIGNS WERE DECLINING. DAYAN , PRIMARY NURSE, CALLED REGARDING MORTUARY SERVICES FOR CREMATION. FAMILY ONLY WANTED CREMATION NO SERVICE. CM ADVISED OF TWO REASONABLE LOCAL PROVIDERS. Patient Name: IRAM BEDOYA Page [id number] at 1638 All edits/amendments must be made on the electronic document DICTATION DATE: 12/17/19 163 CASINO CASHIER: VINICIUS 12/17/19 163 RPT#: [id number] DC DATE:12/17/19 STATUS: DIS IN [facility] [address] [place] [address] END OF REPORT
--- NOTE | 2019-12-17 16:45 | MORECARE ---
CASE MANAGEMENT DISCHARGE SUMMARY PATIENT: IRAM BEDOYA SHARP UNIT: [id number] ADM DATE: 12/16/19 AGE: 69 : 48 SEX: F ROOM/BED: D.2306 AUTHOR: AUGUSTO SAGE PHYSICIAN: REFERRING PHYSICIAN: CATY SENIOR MD DATE OF SERVICE: 12/17/19 Discharge Plan Patient Name: IRAM BEDOYA [facility] [facility] 1950 Planned Disposition: Anticipated Discharge Date: 12/17/19 Discharge Date: 12/17/2019 Expected LOS: 1 Initial Reviewer: [email or web address] Initial Review Date: 12/16/2019 Generated: 12/17/19 5:45 pm Comments DCP- Discharge Planning Updated by [email or web address]: Narda Charles on 12/17/19 2:[address] LATE ENTRY 0930 CM SPOKE WITH CHARGE NURSE THIS AM. HE STATED THE PATIENT WAS PRESENTLY A DNR. THEY WERE PLANNING A TERMINAL EXTUBATION THIS AM. CM VISITED WITH THE PRIMARY NURSE. PATIENT HAD BEEN EXTUBATED AND HER VITAL SIGNS WERE DECLINING. DAYAN , PRIMARY NURSE, CALLED REGARDING MORTUARY SERVICES FOR CREMATION. FAMILY ONLY WANTED CREMATION NO SERVICE. CM ADVISED OF TWO REASONABLE LOCAL PROVIDERS. Last DP export: 12/17/19 3:38 p Patient Name: IRAM BEDOYA Page [id number] at 1645 All edits/amendments must be made on the electronic document DICTATION DATE: 12/17/191644 RCIS: VINICIUS 12/17/191644 RPT#: [id number] DC DATE:12/17/19 STATUS: DIS IN [facility] [address] [place] [address] END OF REPORT
--- NOTE | 2019-12-18 18:25 | CN ---
PATIENT NAME:IARM BEDOYA MEDICAL RECORD: [id number] : 46 LOCATION:[facility]OND[facility].2306 ADMIT DATE: 12/16/19 ACCOUNT: [id number] CONSULTING PHYSICIAN: SHANTA GARRISON MD REFERRING PHYSICIAN: CATY SENIOR MD DATE OF CONSULTATION: 12/16/2019 Surgical Consultation Addendum The patient was seen in the ICU. I was called in to see the patient emergently to place a central line. She had just undergone a CODE BLUE resuscitation, which was effective and restoring spontaneous circulation. However, she is on pressors and additional IV access was needed. I have personally reviewed the CT images from earlier today as well as the most recent CT images. They revealed the interval development of a large amount of free air. I spoke to the plate preparer. Presumably the free air is going to be due to a perforated viscus. The patient was very constipated when she was admitted and this is reflected in the Emergency Room physician's note, a portion of which I have copied and pasted on to my note. The plate preparer indicate that perhaps she received an enema for constipation. I think it more likely that she has a ruptured her colon than ruptured a gastric or duodenal ulcer. Anyhow, she is gravely ill. She is having a decerebrate posturing. Pupils are uneven and fixed. Pupil on the right is 5-mm and on the left 7 mm. Rewview of systems is unobtainable from the patient as she is unresponsive and is on a ventilator. I elected to place the Trialysis catheter on the left side. I elected for a Trialysis catheter as this can be used as a central line, but also can be used for venous access for hemodialysis if that is necessary. Reportedly, she had a functioning fistula; however, I think that there is very likely likehood that she will have another cardiac arrest and this may cause cessation of flow through the fistula to such a degree that the fistula may clot off. The patient's vascular surgeon is Dr. Ray Padilla. The patient has a peritoneal dialysis catheter. However, the plate preparer states that it is not being used for peritoneal dialysis and has not been manipulated today, so it would not be the source of the patient's ascites or pneumoperitoneum. I think she likely does have a surgical abdomen. I am unable to assess tenderness or peritonitis due to her neurologic condition currently. She does have non-purposeful movements. The entire procedure was performed in the presence of a female nurse as was the entire examination. The patient was positioned in a Trendelenburg position. The left neck was sterilely prepped and draped. I percutaneously accessed the left internal jugular vein in an antegrade fashion. Guidewire was passed easily. A small skin yariel was accomplished. A vessel dilator was used to dilate a subcutaneous tract. A short Trialysis catheter was inserted to the hub. It was sutured in place times 3. All lumens flushed easily and aspirated dark, nonpulsatile blood. The patient's family is considering resuscitative options. The was here for a while, but went home. The nurses told me that they are just trying to keep her alive until relatives can come and say their goodbyes. A Trialysis catheter was easily placed. It was placed on the left side of the neck as she may have a contracture or tends to vigorously move her head to the right. I am not sure if this is a chronic or acute condition. I think, she would be a prohibitive operative risk and almost certainly would on the table. We CONSULT REPORT [id number] IRAM BEDOYA really need some guidance from the family has to how aggressive they want us to be in her surgical care. The patient appears quite chronically ill. She has a dry gangrenous toes on the left. PHYSICAL EXAMINATION: GENERAL: The patient appears acutely ill. She also appears chronically ill. VITAL SIGNS: Reviewed. EARS: External ears appear normal. EYES: As listed above. Extraocular movements are not intact. PULMONARY: She is being mechanically ventilated. Rhonchi and rales bilaterally. CARDIOVASCULAR: Currently regular rhythm with ectopic beats. ABDOMEN: Still there is umbilical hernia, which is reducible. There is a peritoneal dialysis catheter that enters the peritoneal cavity and this could be seen on CT scans. I am unable to assess tenderness or peritonitis due to her neurologic condition. EXTREMITIES: There is pallor of the left lower extremity and gangrene of several of the toes on the left. PSYCHIATRIC: Unable to assess due to her neurologic condition. NEUROLOGIC: The pertinent neurologic findings are listed above. TRANSINT:[id number] Voice Confirmation ID: [id number] DOCUMENT ID: [id number] SHANTA GARRISON MD at 1825 CC: [id number] DICTATION DATE: 12/16/192321 ENERGY DIRECTOR: 12/16/19 2357 DIS IN 12/17/19 [facility] [address] [place] [address]
== END 2019-12-17 15:50 | DRG 371 ==
LOC: D.ER 03:18 → D.M2 06:22 → D.ICU 06:22 → D.EDHOLD 06:22 → D.M2 16:21 → D.ICU 21:50
PROVIDERS: Emergency Medicine; Internal Medicine Nephrology; ADMIT Internal Medicine Nephrology; ATTEND Internal Medicine Nephrology
PROC: 05HN33Z Insertion of Infusion Device into Left Internal Jugular Vein, Percutaneous Approach (ICD-10-PCS; principal; 2019-12-16)
PROC: 5A12012 Performance of Cardiac Output, Single, Manual (ICD-10-PCS; 2019-12-16)
PROC: 0BH17EZ Insertion of Endotracheal Airway into Trachea, Via Natural or Artificial Opening (ICD-10-PCS; 2019-12-16)
PROC: 5A1935Z Respiratory Ventilation, Less than 24 Consecutive Hours (ICD-10-PCS; 2019-12-16)
DX: K65.9 Peritonitis, unspecified (principal); N18.6 End stage renal disease; J96.90 Respiratory failure, unspecified, unspecified whether with hypoxia or hypercapnia; I13.2 Hypertensive heart and chronic kidney disease with heart failure and with stage 5 chronic kidney disease, or end stage renal disease; E11.22 Type 2 diabetes mellitus with diabetic chronic kidney disease; E11.65 Type 2 diabetes mellitus with hyperglycemia; I50.9 Heart failure, unspecified; Z66 Do not resuscitate; I46.9 Cardiac arrest, cause unspecified